=== PATIENT | male | born 1970 | race Caucasian/White ===

== ENCOUNTER 2022-10-31 17:48 | Observation (INO) ==
[2022-10-31 18:47] LABS: Basophils # (auto) 0.05 K/uL (0-0.2); Basophils % (auto) 0.9 %; Eosinophils # (auto) 0.17 K/uL (0-0.50); Eosinophils % (auto) 2.9 %; Hematocrit (blood only) 43.3 % (42.0-52.0); Immature Granulocytes # (auto) 0.01 K/uL (0.01-0.20); Immature Granulocytes % (auto) 0.2 %; Lymphocytes # (auto) 2.08 K/uL (1.2-3.4); Lymphocytes % (auto) 35.8 %; Mean Corpuscular Hemoglobin 31.6 pg (25.0-34.0); Mean Corpuscular Hgb Conc 34.6 g/dL (32.0-36.0); Mean Corpuscular Volume 91.2 fL (80.0-100.0); Mean Platelet Volume 9.8 fL (9.4-12.4); Monocytes # (auto) 0.47 K/uL (0.11-0.59); Monocytes % (auto) 8.1 %; Neutrophils # (auto) 3.03 K/uL (1.40-6.50); Neutrophils % (auto) 52.1 %; Platelet Count 176 K/uL (130-400); RDW Coefficient of Variation 12.6 % (11.5-14.5); Red Blood Count 4.75 M/uL (4.70-6.10); White Blood Count 5.81 K/ul (4.8-10.8)
[2022-10-31 19:03] LABS: Alanine Aminotransferase 43 U/L (7-52); Albumin Globulin Ratio 1.3 (0.9-2); Albumin Level 4.5 gm/dl (3.4-5.0); Alkaline Phosphatase 55 U/L (34-104); Anion Gap 7 (3-11); Aspartate Aminotransferase 38 U/L (13-39); BUN Creatinine Ratio 18.2 (10-20); Bilirubin,Total 0.8 mg/dl (0.2-1.0); Blood Urea Nitrogen 18 mg/dl (6-23); Calcium 9.8 mg/dl (8.6-10.3); Carbon Dioxide 27 mmol/L (21-32); Chloride 105 mmol/L (98-107); Est GFR (African American) 99.7 ml/min; Globulin 3.4 gm/dl (2.5-4.0); Glucose 103 mg/dl (70-99(Fasting)); Potassium 3.7 mmol/L (3.5-5.1); Sodium 139 mmol/L (136-145); Total Protein 7.9 gm/dl (6.0-8.3)
--- NOTE | 2022-10-31 20:19 | Emergency Department Note ---
Impression & Plan Vertigo, Elevated CPK, Dehydration, Borderline Lyme serology ED Provider Note NAME: SHREYA ANTHONY AGE: 52 SEX: M ARRIVES VIA: Ambulance INFORMANT: Patient ED PROVIDER(S): Fili Noguera MD CHIEF COMPLAINT: Vertigo PLAN: Disposition: Admit MEDICAL DECISION MAKING: The patient is a pleasant 52-year-old gentleman with a past medical history of hyperlipidemia who presents to the emergency department via EMS and eventually accompanied by his , a physical therapist, for evaluation of return of vertigo with associated nausea and room spinning possible component of persistent lightheadedness after being seen by department yesterday for similar symptoms where he had a CT of the head and CTA of the head and neck that were unremarkable. The patient reports he did feel improvement after meclizine yesterday and did feel better this morning but then his symptoms returned. The patient's describes that he does have a history of anxiety and panic att ack-like episodes which are provoked when he is feeling unwell and so feels there may have been a component of this prior to being transported by EMS. She reports she was not at home to help him through the symptoms. The patient also has been having complaints of headache and generalized body aches over the past several days. They do not have any known tick bites or rashes but do not she is outdoors frequently doing yard work and so tick exposure is possible. The patient feels he does attempt to hydrate when he is outside which is frequent. They deny any fevers, cough, congestion, diarrhea or urinary symptoms. Of note, the patient did arrive to emergency department during time of high volume, acuity and prolonged emergency department waiting times. Critical pathways initiated from triage. On my evaluation the patient is uncomfortable but no acute distress, afebrile with blood pressure 140s/90s and vital signs otherwise stable. He appears clinically dry. He does have notable bilateral horizontal nystagmus to the left that persists. He has no overt focal neurologic deficits otherwise with intact finger-nose, alternating palms and [id number]. EKG without overt acute ischemia. WBC, H/H and platelets within normal limits. Chemistry without metabolic acidosis. Electrolytes LFTs without significant abnormality. CPK mildly elevated at 440, nonspecific. TSH wnl. Patient was treated with IV fluid hydration, Ativan, dexamethasone for possible component of labyrinthitis/vestibular neuritis but symptoms did persist. He was additionally hydrated and treated with diphenhydramine and Reglan but continued to be symptomatic with persistence of nystagmus. Thus, given the patient's refractory symptoms the patient is did agree with plan for admission for further management and MRI. MRI with and without contrast was ordered and was pending. Of note, tickborne illness testing performed and Lyme screen was equivocal for IgM antibody. Thus, empiric treatment initiated with IV ceftriaxone and oral doxycycline for possible coinfection. Case was discussed with admitting resident, Dr. Sow and Dr. Flaherty, [facility] hospitalist, who will evaluate the patient for admission. MRI of the brain subsequently negative for acute abnormalities. Further management per admitting team. Triage Nursing notes reviewed and agree them. Prior/outside medical records reviewed Vital Signs: reviewed Differential diagnosis: Benign positional vertigo, dehydration, hypovolemia, anemia, tumor, infection, hypoglycemia, electrolyte abnormalities, cardiac sources, intracerebral event, toxicologic, neurologic, as well as other pathologies. ER treatment provided: See below. Diagnostics interpreted by me: ECG: NSR, 68 bpm, no ectopy, no overt ST elevation or depression. Cardiac Monitoring: An order for continuous cardiac monitoring was placed and demonstrated NSR, 68 bpm, no ectopy. Laboratory studies: See below Imaging studies: See below Consultation(s): Dr. Sow, admitting resident and Dr. Flaherty [facility] hospitalist HPI: The patient is a pleasant 52-year-old gentleman with a past medical history of hyperlipidemia who presents to the emergency department via EMS and eventuall y accompanied by his , a physical therapist, for evaluation of return of vertigo with associated nausea and room spinning possible component of persistent lightheadedness after being seen by department yesterday for similar symptoms where he had a CT of the head and CTA of the head and neck that were unremarkable. The patient reports he did feel improvement after meclizine yesterday and did feel better this morning but then his symptoms returned. The patient's describes that he does have a history of anxiety and panic attack-like episodes which are provoked when he is feeling unwell and so feels there may have been a component of this prior to being transported by EMS. She reports she was not at home to help him through the symptoms. The patient also has been having complaints of headache and generalized body aches over the past several days. They do not have any known tick bites or rashes but do not she is outdoors frequently doing yard work and so tick exposure is possible. The patient feels he does attempt to hydrate when he is outside which is frequent. They deny any fevers, cough, congestion, diarrhea or urinary symptoms. ROS: See above HPI for pertinent positives & negatives. A total of 10 systems reviewed and were otherwise negative. VITALS:See Below PHYSICAL EXAMINATION: GENERAL: Awake, alert, uncomfortable-appearing, in no distress HENT: Normocephalic, atraumatic. Oropharynx with dry mucous membranes and otherwise unremarkable. EYES: Normal conjunctiva. Sclera non-icteric. Bilateral horizontal nystagmus to the left. NECK: Supple. No nuchal rigidity. FROM. No JVD. RESPIRATORY: Clear to auscultation. CARDIAC: Regular rate, normal rhythm. Extremities warm and well perfused. Pulses equal. ABDOMEN: Soft, non-distended. No tenderness to palpation. No rebound or guarding. No masses. RECTAL: Deferred. MUSCULOSKELETAL: Chest examination reveals no tenderness. The back is symmetrical on inspection without obvious abnormality. There is no CVA tenderness to palpation. No joint edema. LOWER EXTREMITIES: Calves are equal size bilaterally and non-tender. No edema. No discoloration. NEURO: Normal sensorium. No sensory or motor deficits noted. 5/5 strength and SILT x 4 extremities. Cerebellar function intact including [id number], alternating palms, [id number]-[id number]. SKIN: No rash or jaundice noted. Fili Noguera MD Past Med/Surg History Medical History Hyperlipidemia Surgical History No history of previous surgery Family History Grandfather (Paternal) Myocardial infarction Prostate cancer Grandfather (Maternal) Myocardial infarction Father Prostate cancer Sister Diabetes Denies family history of Ovarian cancer Breast cancer Colorectal cancer Stroke Social History Smoking Status: Never smoker Second Hand Exposure: No; Do You Dip or Chew Tobacco: No; Hx Alcohol Use: No Hx Substance Use: No Preferred Language: Djiboutian Communication Ability: Effective Visual Impairment: Limited Hearing Ability: Normal Dye House Helper Required: No marital status: Current Living Situation: Spouse current occupational status: employed current occupation: [employer] How many Children do You have: 2 Feels Safe at Home: Yes Childhood Exposure to Second-Hand Smoke: No caffeine: Yes Dental Care, Regularly: Yes Physical Activity Frequency: 1-2 Times per Week Seatbelt Use: always Sunscreen Use: No Allergies Allergies Allergy/AdvReac Type Severity Reaction Status Date / Time aspirin Allergy Intermediate "STORAGE Unverified 10/31/22 20:10 POOL SYNDROME" Home Meds Home Medications Medication Instructions Recorded Confirmed cetirizine 10 mg tablet (Zyrtec) 10 mg PO DAILY 10/30/22 10/31/22 diphenhydramine HCl 25 mg capsule 25 mg PO TID PRN Allergy Symptoms 10/30/22 10/31/22 (Benadryl) multivitamin 1 tab PO QAM 10/30/22 10/31/22 Previous Rx's Medication Instructions Recorded meclizine 25 mg tablet 25 mg PO TID PRN dizziness #30 tabs 10/30/22 Results & Data (ED) Vital Signs Vital Signs - 24 hr 10/31/22 17:35 10/31/22 19:47 10/31/22 21:38 Temperature 37 C Temperature Source Temporal Artery Scan Pulse Rate 64 74 Pulse Rate [Bilateral] 64 Respiratory Rate 20 18 Respiratory Effort / Characteristics Non-Labored Spontaneous Respiratory Depth Normal Blood Pressure 149/94 H Blood Pressure [Right Arm] 151/64 H Blood Pressure Mean 112 Blood Pressure Mean [Right Arm] 93 Blood Pressure Position [Right Arm] Pulse Oximetry 97 93 Oxygen Delivery Method Room Air Room Air Sepsis Recent Fever Within 48 Hours No Sepsis New/Unexplained Change in Mental Status No Sepsis Action Taken by Nursing No Action Required 10/31/22 21:39 10/31/22 23:30 11/01/22 01:42 Temperature Temperature Source Pulse Rate Pulse Rate [Bilateral] 64 60 66 Respiratory Rate 18 18 18 Respiratory Effort / Characteristics Non-Labored Spontaneous Non-Labored Spontaneous Respiratory Depth Normal Normal Blood Pressure Blood Pressure [Right Arm] 153/93 H 156/88 H Blood Pressure Mean Blood Pressure Mean [Right Arm] 113 110 Blood Pressure Position [Right Arm] Sitting Sitting Pulse Oximetry 94 95 95 Oxygen Delivery Method Room Air Room Air Room Air Sepsis Recent Fever Within 48 Hours Sepsis New/Unexplained Change in Mental Status Sepsis Action Taken by Nursing Laboratory Data Attestation: I reviewed the patient's lab results. 10/31/22 18:20 10/31/22 18:20 Lab Results 10/31/22 10/31/22 10/31/22 Range/Units 18:20 18:20 18:20 WBC 5.81 (4.8-10.8) K/ul RBC 4.75 (4.70-6.10) M/uL Hgb 15.0 (14.0-18.0) g/dl Hct 43.3 (42.0-52.0) % MCV 91.2 (80.0-100.0) fL MCH 31.6 (25.0-34.0) pg MCHC 34.6 (32.0-36.0) g/dL RDW Std Deviation 42.0 (36.4-46.3) fL RDW Coeff of Luis Enrique 12.6 (11.5-14.5) % Plt Count 176 (130-400) K/uL MPV 9.8 (9.4-12.4) fL Immature Gran % (Auto) 0.2 % Neut % (Auto) 52.1 % Lymph % (Auto) 35.8 % [place] % (Auto) 8.1 % Eos % (Auto) 2.9 % Baso % (Auto) 0.9 % Neut # (Auto) 3.03 (1.40-6.50) K/uL Lymph # (Auto) 2.08 (1.2-3.4) K/uL [place] # (Auto) 0.47 (0.11-0.59) K/uL Eos # (Auto) 0.17 (0-0.50) K/uL Baso # (Auto) 0.05 (0-0.2) K/uL Immature Gran # (Auto) 0.01 (0.01-0.20) K/uL Sodium 139 (136-145) mmol/L Potassium 3.7 (3.5-5.1) mmol/L Chloride 105 (98-107) mmol/L Carbon Dioxide 27 (21-32) mmol/L Anion Gap 7 (3-11) BUN 18 (6-23) mg/dl Creatinine 0.99 (0.6-1.4) mg/dl Est Cr Clr Drug Dosing Not Reportable Est GFR ( Amer) 99.7 ml/min Est GFR (Non-Af Amer) 86.0 ml/min BUN/Creatinine Ratio 18.2 (10-20) Glucose 103 H (70-99(Fasting)) mg/dl Calcium 9.8 (8.6-10.3) mg/dl Phosphorus 2.8 (2.5-4.9) mg/dl Magnesium 2.1 (1.7-2.4) mg/dl Total Bilirubin 0.8 (0.2-1.0) mg/dl AST 38 (13-39) U/L ALT 43 (7-52) U/L Alkaline Phosphatase 55 (34-104) U/L Total Creatine Kinase 443 H (30-223) U/L Total Protein 7.9 (6.0-8.3) gm/dl Albumin 4.5 (3.4-5.0) gm/dl Globulin 3.4 (2.5-4.0) gm/dl Albumin/Globulin Ratio 1.3 (0.9-2) TSH (0.300-4.500) uIu/ml Urine Color Urine Appearance (Clear) Urine pH (4.5-7.5) Ur Specific [place] (1.000-1.030) Urine Protein (Negative) Urine Glucose (UA) (Negative) Urine Ketones (Negative) Urine Blood (Negative) Urine Nitrite (Negative) Urine Bilirubin (Negative) Urine Urobilinogen (Negative) Ur Leukocyte Esterase (Negative) Anaplasma Smear Babesia Smear Lyme Disease IgG Ab Negative (Negative) Lyme Disease IgM Ab Equivocal A (Negative) 10/31/22 10/31/22 11/01/22 Range/Units 18:20 18:20 Unknown WBC (4.8-10.8) K/ul RBC (4.70-6.10) M/uL Hgb (14.0-18.0) g/dl Hct (42.0-52.0) % MCV (80.0-100.0) fL MCH (25.0-34.0) pg MCHC (32.0-36.0) g/dL RDW Std Deviation (36.4-46.3) fL RDW Coeff of Luis Enrique (11.5-14.5) % Plt Count (130-400) K/uL MPV (9.4-12.4) fL Immature Gran % (Auto) % Neut % (Auto) % Lymph % (Auto) % [place] % (Auto) % Eos % (Auto) % Baso % (Auto) % Neut # (Auto) (1.40-6.50) K/uL Lymph # (Auto) (1.2-3.4) K/uL [place] # (Auto) (0.11-0.59) K/uL Eos # (Auto) (0-0.50) K/uL Baso # (Auto) (0-0.2) K/uL Immature Gran # (Auto) (0.01-0.20) K/uL Sodium (136-145) mmol/L Potassium (3.5-5.1) mmol/L Chloride (98-107) mmol/L Carbon Dioxide (21-32) mmol/L Anion Gap (3-11) BUN (6-23) mg/dl Creatinine (0.6-1.4) mg/dl Est Cr Clr Drug Dosing Est GFR ( Amer) ml/min Est GFR (Non-Af Amer) ml/min BUN/Creatinine Ratio (10-20) Glucose (70-99(Fasting)) mg/dl Calcium (8.6-10.3) mg/dl Phosphorus (2.5-4.9) mg/dl Magnesium (1.7-2.4) mg/dl Total Bilirubin (0.2-1.0) mg/dl AST (13-39) U/L ALT (7-52) U/L Alkaline Phosphatase (34-104) U/L Total Creatine Kinase (30-223) U/L Total Protein (6.0-8.3) gm/dl Albumin (3.4-5.0) gm/dl Globulin (2.5-4.0) gm/dl Albumin/Globulin Ratio (0.9-2) TSH 3.518 (0.300-4.500) uIu/ml Urine Color Yellow Urine Appearance Clear (Clear) Urine pH 7.5 (4.5-7.5) Ur Specific [place] 1.007 (1.000-1.030) Urine Protein Negative (Negative) Urine Glucose (UA) Negative (Negative) Urine Ketones Negative (Negative) Urine Blood Negative (Negative) Urine Nitrite Negative (Negative) Urine Bilirubin Negative (Negative) Urine Urobilinogen Negative (Negative) Ur Leukocyte Esterase Negative (Negative) Anaplasma Smear See Comment Babesia Smear See Comment Lyme Disease IgG Ab (Negative) Lyme Disease IgM Ab (Negative) Administered Medications Discontinued Medications Dexamethasone Sodium Phosphate (DexamethasonePf 10 Mg/Ml Vial) 10 mg IV NOW ONE Stop: 10/31/22 21:00 Last Admin: 10/31/22 21:19 Dose: 10 mg Documented By: SHINE Diphenhydramine HCl (Diphenhydramine 50 Mg/Ml Vial) 25 mg IV NOW STA Stop: 10/31/22 23:08 Last Admin: 10/31/22 23:31 Dose: 25 mg Documented By: CONOR Doxycycline Hyclate (Doxycycline Hyclate 100 Mg Cap) 100 mg PO NOW STA Stop: 10/31/22 23:41 Last Admin: 11/01/22 00:16 Dose: 100 mg Documented By: CONOR Gadobutrol (Gadobutrol 65ml Vial) 10 ml IV ONCE ONE Stop: 11/01/22 01:31 Last Admin: 11/01/22 01:30 Dose: 10 ml Documented By: GISELL Sodium Chloride (Nss 1000ml) 2,000 mls @ 999 mls/hr IV .Q2H1M ONE Stop: 10/31/22 22:58 Last Infusion: 11/01/22 01:20 Dose: 0 mls/hr Documented By: Admin: 10/31/22 21:22 Dose: 999 mls/hr Documented By: SHINE Acetaminophen (Ofirmev) 1,000 mg in 100 mls @ 400 mls/hr IV NOW STA Stop: 10/31/22 21:18 Last Infusion: 10/31/22 21:39 Dose: 0 mls/hr Documented By: Admin: 10/31/22 21:18 Dose: 400 mls/hr Documented By: SHINE Ceftriaxone Sodium (Rocephin) 2,000 mg in 70 mls @ 140 mls/hr IV NOW STA Stop: 11/01/22 00:09 Last Infusion: 11/01/22 01:20 Dose: 0 mls/hr Documented By: Admin: 11/01/22 00:14 Dose: 140 mls/hr Documented By: CONOR Lorazepam (Lorazepam 1 Mg Tab) 1 mg SL NOW STA Stop: 10/31/22 20:45 Last Admin: 10/31/22 21:18 Dose: 1 mg Documented By: SHINE Lorazepam (Lorazepam 1 Mg Tab) 1 mg SL NOW STA Stop: 11/01/22 00:15 Last Admin: 11/01/22 00:18 Dose: 1 mg Documented By: CONOR Meclizine HCl (Meclizine Hcl 25 Mg Tab) 25 mg PO NOW STA Stop: 10/31/22 23:54 Last Admin: 11/01/22 00:15 Dose: 25 mg Documented By: CONOR Metoclopramide HCl (Metoclopramide Hcl Inj 5 Mg/Ml 2 Ml Vial) 5 mg IV ONE ONE Stop: 10/31/22 23:08 Last Admin: 10/31/22 23:34 Dose: 5 mg Documented By: CONOR Imaging Data Radiologist's Impression: Brain MRI 11/01/22 00:49 Exam(s): MRI HEAD W/WO Contrast IV Amt: 10cc gadavist EXAM: MR Head Without and With Intravenous Contrast CLINICAL HISTORY: Reason for exam: intractable vertigo. TECHNIQUE: Magnetic resonance images of the head/brain without and with intravenous contrast in multiple planes. CONTRAST: Patient received 10cc gadavist of IV contrast COMPARISON: No relevant prior studies available. FINDINGS: Brain: Unremarkable. No mass. No hemorrhage. No acute infarct. Ventricles: Unremarkable. No ventriculomegaly. Bones/joints: Unremarkable. Sinuses: Unremarkable as visualized. No acute sinusitis. Mastoid air cells: Unremarkable as visualized. No mastoid effusion. Orbits: Unremarkable as visualized. IMPRESSION: Normal head/brain MRI. Electronically signed by: Royer Nicole MD 11/01/22 01:54 AM Discharge Plan Visit Data Chief Complaint: Vertigo Stated Complaint: VERTIGO, HERE YESTERDAY FOR SAME ED Provider: Fili Noguera Discharge Problem: Vertigo, Elevated CPK, Dehydration, Borderline Lyme serology Forms Stand Alone Forms: My [facility] [place] Prescriptions Prescriptions: No Action multivitamin Tablet 1 tab PO QAM cetirizine [Zyrtec] 10 mg Tablet 10 mg PO DAILY diphenhydramine HCl [Benadryl] 25 mg Capsule 25 mg PO TID PRN (Reason: Allergy Symptoms) meclizine 25 mg tablet 25 mg PO TID PRN (Reason: dizziness) Qty: 30 0RF Referrals Referrals: Ned Carcamo, [Primary Care Provider] -
[2022-10-31] MEDS ORDERED: LORazepam 1 MG TAB SL STA (20:44)
[2022-10-31] MEDS ORDERED: SODIUM CHLORIDE 0.9% 1000ML 2,000 ML IV ONE (20:58)
[2022-10-31] MEDS ORDERED: dexAMETHasone**PF** 10 MG/ML VIAL IV ONE (20:59)
[2022-10-31] MEDS ORDERED: ACETAMINOPHEN 1,000 MG/100 ML VIAL IV STA (21:04)
[2022-10-31 21:29] LABS: Creatine Kinase 443 U/L (30-223); Magnesium 2.1 mg/dl (1.7-2.4); Phosphorus 2.8 mg/dl (2.5-4.9)
[2022-10-31 22:05] LABS: Lyme Ab IgG w/WB Rflx Negative (Negative)
[2022-10-31 22:12] LABS: Lyme Ab IgM w/WB Rflx Equivocal (Negative)
[2022-10-31] MEDS ORDERED: METOCLOPRAMIDE HCL INJ 5 MG/ML 2 ML VIAL IV ONE (23:07)
[2022-10-31] MEDS ORDERED: diphenhydrAMINE 50 MG/ML VIAL IV STA (23:07)
[2022-10-31] MEDS ORDERED: DOXYCYCLINE HYCLATE 100 MG CAP PO STA (23:40)
[2022-10-31] MEDS ORDERED: cefTRIAXone SODIUM 2,000 MG/70 ML BAG IV STA (23:40)
[2022-10-31] MEDS ORDERED: MECLIZINE HCL 25 MG TAB PO STA (23:53)
[2022-11-01] MEDS ORDERED: LORazepam 1 MG TAB SL STA (00:14)
--- NOTE | 2022-11-01 00:15 | History & Physical Report ---
Date of Service November 01, 2022 Assessment & Plan (1) Vertigo: Plan: 52 M with benign past medical history notable only for hyperlipidemia who presents with 2 days of dizziness with vertigo symptoms. Vertigo -Acute. Atraumatic. Negative brain MRI, negative CT head, CTA head and neck. -S/p IV dexamethasone 10 mg, IV metoclopramide 5 mg, IV ceftriaxone, p.o. doxycycline, SL lorazepam in the ED. -Mild nausea, presence of imbalance, no hearing loss or tinnitus. -Results of work-up suggests peripheral rather than central process. -Differential includes BPPV, infectious process like labyrinthitis or vestibular neuritis, even herpes zoster oticus (though do not really suspect this), Mnire's, otosclerosis, or vestibular migraine. -Likely BPPV, as more than 90% of cases of positional vertigo nystagmus can be associated with this process. There is also some faint association of creatine kinase and BPPV (though in childhood). * Continue meclizine 25 mg 3 times daily as needed * As needed Ativan 0.5 mg every hour for anxiety * Continue home cetirizine Elevated CPK -443 on admission. Unclear etiology. Likely acute. Patient denies prolonged or protracted periods of falls or unconsciousness. -Status post IVF rehydration: NS bolus x2 L. -There may be association with BPPV, though its evidence is a marker and has not been conclusively proven. * IV hydration as above. * May need to recheck creatinine kinase levelsthough if patient otherwise asymptomatic, this may be rechecked on an outpatient basis. Code: Full code Dispo: Med-Surg FEN/GI: Regular DVT Prophylaxis: PT/OT: Yes Consults: None Case Management: No (2) Elevated CPK: History of Present Illness Primary Care Provider: Ned Carcamo DO Rashad is a 52-year-old man with past medical history of hyperlipidemia, who presented to the emergency department via ambulance for evaluation of vertigo and nausea x2 days. He was evaluated in the ER on 10/30/2022 for the same symptomshowever, head CT, CTA head/neck were unremarkable. Patient was discharged home initially on meclizine, and saw improvement in his symptoms initially. However, his symptoms returned the next morning. Patient felt compelled to return due to an anxiety attack episode, which he reports occurs infrequently in association with periods of illness such as this. Patient reports he had been feeling unwell in the days prior to the onset of his vertigo, particularly headache and generalized myalgia. He admits to spending a good amount of time outdoors hunting and hiking but does not recall finding any ticks. In the ED, vitals were mostly stable/wnl. Labs were also mostly normal, though creatine kinase was elevated at 443. A tickborne panel was also ordered but was pending at the time of this note. Brain MRI was negative for any abnormalities or acute process. He received a 2 L bolus of IV normal saline, meclizine, and IV ceftriaxone and doxycycline. Hospitalist service was then consulted for admission. Allergies Allergy/AdvReac Type Severity Reaction Status Date / Time aspirin Allergy Intermediate "STORAGE Unverified 10/31/22 20:10 POOL SYNDROME" Home Medications Medication Instructions Recorded Confirmed Type cetirizine 10 mg tablet (Zyrtec) 10 mg PO DAILY 10/30/22 10/31/22 History diphenhydramine HCl 25 mg capsule 25 mg PO TID PRN Allergy Symptoms 10/30/22 10/31/22 History (Benadryl) meclizine 25 mg tablet 25 mg PO TID PRN dizziness #30 tabs 10/30/22 10/31/22 Rx multivitamin 1 tab PO QAM 10/30/22 10/31/22 History hydroxyzine HCl 25 mg tablet 25 mg PO Q6H PRN vertigo 1 week 11/01/22 Rx #30 tabs Past Med/Surg History Medical History Hyperlipidemia Surgical History No history of previous surgery Family History Grandfather (Paternal) Myocardial infarction Prostate cancer Grandfather (Maternal) Myocardial infarction Father Prostate cancer Sister Diabetes Denies family history of Ovarian cancer Breast cancer Colorectal cancer Stroke Social History Smoking Status: Never smoker Second Hand Exposure: No; Do You Dip or Chew Tobacco: No; Hx Alcohol Use: No Hx Substance Use: No Preferred Language: [place] Communication Ability: Effective Visual Impairment: Limited Hearing Ability: Normal International Guest Coordinator Required: No Beliefs That Will Affect Care: None marital status: Current Living Situation: Spouse current occupational status: employed current occupation: [employer] How many Children do You have: 2 Feels Safe at Home: Yes Childhood Exposure to Second-Hand Smoke: No caffeine: Yes Dental Care, Regularly: Yes Physical Activity Frequency: 1-2 Times per Week Seatbelt Use: always Sunscreen Use: No Review of Systems Review of Systems: All systems reviewed & are unremarkable except as noted in HPI & below Physical Exam Physical Exam: General: No acute distress HEENT: PERRLA. Normal conjunctiva, anicteric sclera. Oropharynx normal. Respiratory: Normal respiratory effort, CTABL. Cardiovascular: RRR without murmurs, gallops, or rubs. No pedal edema. GI: Soft abdomen with normal bowel sounds heard on auscultation. Nontender x4 quadrants Neuro: Cranial nerves II through XII intact. Horizontal (right-gazing) nystagmus noted on ocular exam. No focal sensory deficits. Equal strength at wrist, fingers, elbows, knees, and ankles. Alert and oriented x3. Results & Data Results & Data Vital Signs (Past 12 Hours) Vital Signs Temp Pulse Pulse Resp BP BP Pulse Ox 10/31/22 23:30 60 18 153/93 H 95 10/31/22 21:39 64 18 94 10/31/22 21:38 64 18 151/64 H 93 10/31/22 19:47 74 10/31/22 17:35 37 C 64 20 149/94 H 97 O2 Del Method 10/31/22 23:30 Room Air 10/31/22 21:39 Room Air 10/31/22 21:38 Room Air 10/31/22 19:47 10/31/22 17:35 Room Air Supervising Physician Co-Signing Physician Notes Attending addendum: I have physically seen this patient, have supervised the medical residents activities, and agree with the H&P unless as otherwise noted. Assessment and Plan: Intractable vertigo/equivocal IgM Lyme and negative IgG Received dexamethasone 10 mg IV, metoclopramide 5 mg IV, ceftriaxone 2 g IV, doxycycline 100 mg p.o. and lorazepam 1 mg sublingually from the ED Continue empiric treatment with doxycycline for Lyme now Symptomatic treatment with meclizine Continue cetirizine 10 mg daily Question mild rhabdomyolysis- [id number] on admission Follow with serial laboratories Remaining orders and notations as noted Resident Activity Tracking Resident Involvement: Resident Care Provided Care Provided: Adult Hospital Medicine
[2022-11-01] MEDS ORDERED: GADOBUTROL 65ML VIAL IV ONE (01:30)
[2022-11-01 01:32] LABS: Appearance Urine Clear (Clear); Bilirubin Urine Negative (Negative); Blood Urine Negative (Negative); Color Urine Yellow; Glucose Urine UA Negative (Negative); Ketones Urine Negative (Negative); Leukocyte Esterase Urine Negative (Negative); Nitrite Urine Negative (Negative); Protein Urine Negative (Negative); Specific Gravity Urine 1.007 (1.000-1.030); Urobilinogen Urine Negative (Negative); pH Urine 7.5 (4.5-7.5)
--- NOTE | 2022-11-01 01:55 | Magnetic Resonance Report ---
Exam(s): MRI HEAD W/WO Contrast IV Amt: 10cc gadavist EXAM: MR Head Without and With Intravenous Contrast CLINICAL HISTORY: Reason for exam: intractable vertigo. TECHNIQUE: Magnetic resonance images of the head/brain without and with intravenous contrast in multiple planes. CONTRAST: Patient received 10cc gadavist of IV contrast COMPARISON: No relevant prior studies available. FINDINGS: Brain: Unremarkable. No mass. No hemorrhage. No acute infarct. Ventricles: Unremarkable. No ventriculomegaly. Bones/joints: Unremarkable. Sinuses: Unremarkable as visualized. No acute sinusitis. Mastoid air cells: Unremarkable as visualized. No mastoid effusion. Orbits: Unremarkable as visualized. IMPRESSION: Normal head/brain MRI. Electronically signed by: Royer Nicole MD 11/01/22 01:54 AM
[2022-11-01] MEDS ORDERED: MELATONIN 3 MG TAB PO PRN (02:57)
[2022-11-01] MEDS ORDERED: LORazepam 0.5 MG TAB PO PRN (02:57)
[2022-11-01] MEDS ORDERED: MECLIZINE HCL 25 MG TAB PO PRN (02:57)
--- NOTE | 2022-11-01 07:18 | Hospitalist Progress Note ---
Date of Service November 01, 2022 Assessment & Plan (1) Vertigo: Plan: Pt is a 52 yo male with benign past medical history notable only for hyperlipidemia who presents with 2 days of dizziness with vertigo symptoms. #Vertigo -Acute. Atraumatic. Negative brain MRI, negative CT head, CTA head and neck. -Mild nausea, presence of imbalance, no hearing loss or tinnitus, no recent illness -Results of work-up suggests peripheral rather than central process. - CPK elevated 443, - lyme IgM was equivocal, western blot pending - per PT: [place]-hallpike negative for exacerbation of symptoms/nystagmus, recommending neuro consult and outpatient ENT follow-up - continue meclizine -Differential includes BPPV, infectious process like labyrinthitis or vestibular neuritis, even herpes zoster oticus (though do not really suspect this), Mnire's, otosclerosis, or vestibular migraine. - (2) Elevated CPK: Admission and Anticipated Discharge Date Admission Date: November 01, 2022 Subjective Pt is a 52 yo male with benign past medical history notable only for hyperlipidemia who presents with 2 days of dizziness with vertigo symptoms. Pt seen with his present. He states that he first felt symptoms on Monday after jainism with feeling like the room is spinning associated with nausea. He states that he had several more episodes that prompted him to go to the ER. He was discharged from the ER with meclizine, and then his symptoms seemed to worsen and he states he got more episodes of vertigo along with feeling sick, so he returned to the hospital. He states that right now he feels okay, but that even with his eyes closed there is a baseline "spinning" that he feels. He states it gets much worse when he moves his head around and that looking to the far right makes it better. Denies recent illnesses. He does note a similar episode many years ago where he was diagnosed with viral labyrinthitis, but had no issues since that episode until Monday. Review of Systems Review of Systems: Constitutional: denies fever, chills, HEENT: denies congestion, sore throat Cardio: denies chest pain, palpitations Resp: denies shortness of breath, cough GI: denies abdominal pain, nausea, vomiting, constipation, diarrhea Neuro: denies new numbness, tingling, weakness Physical Exam Physical Exam: General:Alert and oriented, no acute distress, HEENT: Normocephalic, moist oral mucosa, Cardio: Regular rate and rhythm, no murmur, Resp:Lungs clear to auscultation b/l, no wheezes or rhonchi, GI: Soft and nontender, nondistended, bowel sounds active Skin: Warm, pink, dry, Psych: Mood-affect congruence. Results & Data Results & Data Vital Signs (Past 12 Hours) Vital Signs Temp Pulse Pulse Resp BP BP Pulse Ox 11/01/22 03:00 11/01/22 03:00 36.4 C L 66 16 148/86 H 94 11/01/22 02:34 67 18 156/82 H 96 11/01/22 01:42 66 18 156/88 H 95 10/31/22 23:30 60 18 153/93 H 95 10/31/22 21:39 64 18 94 10/31/22 21:38 64 18 151/64 H 93 10/31/22 19:47 74 O2 Del Method 11/01/22 03:00 Room Air 11/01/22 03:00 Room Air 11/01/22 02:34 Room Air 11/01/22 01:42 Room Air 10/31/22 23:30 Room Air 10/31/22 21:39 Room Air 10/31/22 21:38 Room Air 10/31/22 19:47
[2022-11-01 07:29] LABS: BUN Creatinine Ratio 15.3 (10-20); Calcium 9.4 mg/dl (8.6-10.3); Creatinine Clr Calc Pharmacy 111.6 ml/min; Est GFR (African American) 114.5 ml/min; Est GFR (Non-African American) 98.8 ml/min; Potassium 4.3 mmol/L (3.5-5.1)
[2022-11-01] MEDS ORDERED: CETIRIZINE HCL 10 MG TABLET PO SCH (09:00)
[2022-11-01] MEDS ORDERED: ACETAMINOPHEN 500 MG TAB PO PRN (13:34)
--- NOTE | 2022-11-01 15:58 | Electrocardiogram Report ---
Test Reason : Blood Pressure : / mmHG Vent. Rate : 066 BPM Atrial Rate : 066 BPM P-R Int : 164 ms QRS Dur : 098 ms QT Int : 398 ms P-R-T Axes : 033 051 010 degrees QTc Int : 417 ms Normal sinus rhythm Normal ECG When compared with ECG of 30-OCT-2022 11:09, No significant change was found Confirmed by Silverio Chirinos ([id number]) on 11/01/2022 3:57:50 PM Referred By: REFERRED SELF Confirmed By:Silverio Chirinos
--- NOTE | 2022-11-01 16:01 | Electrocardiogram Report ---
Test Reason : Blood Pressure : / mmHG Vent. Rate : 068 BPM Atrial Rate : 068 BPM P-R Int : 154 ms QRS Dur : 100 ms QT Int : 400 ms P-R-T Axes : 049 059 014 degrees QTc Int : 425 ms Normal sinus rhythm Normal ECG When compared with ECG of 31-OCT-2022 18:23, (unconfirmed) No significant change was found Confirmed by Silverio Chirinos ([id number]) on 11/01/2022 4:00:31 PM Referred By: REFERRED SELF Confirmed By:Silverio Chirinos
--- NOTE | 2022-11-01 17:00 | Discharge Summary ---
Date of Service November 01, 2022 Admission HPI Per Admitting Provider Rashad is a 52-year-old man with past medical history of hyperlipidemia, who presented to the emergency department via ambulance for evaluation of vertigo and nausea x2 days. He was evaluated in the ER on 10/30/2022 for the same symptomshowever, head CT, CTA head/neck were unremarkable. Patient was discharged home initially on meclizine, and saw improvement in his symptoms initially. However, his symptoms returned the next morning. Patient felt compelled to return due to an anxiety attack episode, which he reports occurs infrequently in association with periods of illness such as this. Patient reports he had been feeling unwell in the days prior to the onset of his vertigo, particularly headache and generalized myalgia. He admits to spending a good amount of time outdoors hunting and hiking but does not recall finding any ticks. In the ED, vitals were mostly stable/wnl. Labs were also mostly normal, though creatine kinase was elevated at 443. A tickborne panel was also ordered but was pending at the time of this note. Brain MRI was negative for any abnormalities or acute process. He received a 2 L bolus of IV normal saline, meclizine, and IV ceftriaxone and doxycycline. Hospitalist service was then consulted for admission. Admission Exam Per Admitting Provider General: No acute distress HEENT: PERRLA. Normal conjunctiva, anicteric sclera. Oropharynx normal. Respiratory: Normal respiratory effort, CTABL. Cardiovascular: RRR without murmurs, gallops, or rubs. No pedal edema. GI: Soft abdomen with normal bowel sounds heard on auscultation. Nontender x4 quadrants Neuro: Cranial nerves II through XII intact. Horizontal (right-gazing) nystagmus noted on ocular exam. No focal sensory deficits. Equal strength at wrist, fingers, elbows, knees, and ankles. Alert and oriented x3. Principal Diagnosis Vestibular neuritis Discharge Exam General:Alert and oriented, no acute distress, HEENT: Normocephalic, moist oral mucosa, Cardio: Regular rate and rhythm, no murmur, Resp:Lungs clear to auscultation b/l, no wheezes or rhonchi, GI: Soft and nontender, nondistended, bowel sounds active Skin: Warm, pink, dry, Psych: Mood-affect congruence. Discharge Data Allergies Allergy/AdvReac Type Severity Reaction Status Date / Time aspirin Allergy Intermediate "STORAGE Unverified 10/31/22 20:10 POOL SYNDROME" Consultations 10/31/22 23:53 ED Decision to Admit Stat Ordered Studies 11/01/22 00:49 MR brain wo/w con Stat Hospital Course (1) Vertigo: Pt is a 52 yo male with benign past medical history notable only for hyperlipidemia who presents with 2 days of dizziness with vertigo symptoms. Pt continuing to improve and desires to go home. Will send home with rx for hydroxyzine for vertigo and anxiety. Pt to follow-up with PCP once discharged from the hospital. #Vertigo -Acute. Atraumatic. Negative brain MRI, negative CT head, CTA head and neck. -Mild nausea, presence of imbalance, no hearing loss or tinnitus, no recent illness -Results of work-up suggests peripheral rather than central process. - CPK elevated 443, - lyme IgM was equivocal, western blot pending - per PT: [place]-hallpike negative for exacerbation of symptoms/nystagmus, - will give pt hydroxyzine here and discharge with some for both the vertigo and anxiety symptoms (2) Elevated CPK: Total Time Total Time Spent Total Time Spent (In Minutes): <30 Discharge Plan Discharge Items Patient Disposition: Home - Self-Care Reason For Visit: VERTIGO Discharge Diagnosis: Vestibular neuritis Activity: Resume your previous activity Non-emergency contact: Primary Care Provider Call non-emergency contact if: you have any medication questions, your pain is not controlled and your temperature is above 101.5 Follow-up/Referrals: Ned Carcamo DO [Primary Care Provider] - 11/08/22 11:30 am Diet: Regular Addtl Attending Provider Instructions: You were admitted for vertigo secondary to vestibular neuritis. You were treated with anti-histamines. Your symptoms have improved, and we feel it is safe for you to return home. Medications: Your medication list has been reviewed and reconciled upon discharge to ensure accuracy and continuity of care. An updated list of all your medications is included with your hospital discharge paperwork. Please review this list closely, and make note of any changes. We sent a new medication called hydroxyzine to your pharmacy. Take hydroxyzine 25 mg every 6 hours as needed for symptoms of vertigo and/or anxiety. Take your medications as instructed; do not skip a dose of your medicines. Make sure all of your doctors know every medicine you are taking (including hgzs-nkr-gyeokev medicines, vitamins, and supplements). Call your primary care provider before taking any new medicines (including over- the-counter medicines, vitamins, and supplements), because some of these may interact with your current medications, or may make your symptoms worse. Tell your primary care provider if you cannot afford your medications. Follow-up appointments: Make an appointment with your primary care physician within one week of discharge. A copy of this summary will be sent to them. Every time you see your primary care physician, or any other doctor, bring your medication list, a list of questions, and your recent weights. CONTACT YOUR PRIMARY CARE PROVIDER if you experience any of the following: Shortness of breath or difficulty breathing Swelling of your feet, ankles, hands or abdomen Feeling tired with normal activity or experiencing dizziness or fainting Difficulty following your treatment plan, or difficulty taking medications CALL 911 OR GO TO THE EMERGENCY DEPARTMENT if you experience any of the following: Severe abdominal pain or nausea/vomiting Severe chest pain, or chest pain that radiates (moves) to your jaw or arm Sudden, severe shortness of breath or difficulty breathing Thank you for allowing us to participate in your care. Pending Studies at Discharge: No Stand-Alone Forms: [facility], Work[facility]School Release Medications and DC Order Prescriptions: New hydroxyzine HCl 25 mg Tablet 25 mg PO Q6H PRN (Reason: vertigo) 7 Days Qty: 30 0RF Continued multivitamin Tablet 1 tab PO QAM cetirizine [Zyrtec] 10 mg Tablet 10 mg PO DAILY diphenhydramine HCl [Benadryl] 25 mg Capsule 25 mg PO TID PRN (Reason: Allergy Symptoms) meclizine 25 mg tablet 25 mg PO TID PRN (Reason: dizziness) Qty: 30 0RF Discharge Orders: Discharge Order (Routine); Ordered 11/01/22 Ordered By: Gail Palma Admission Data Admit Date/Time: 11/01/22 01:04 Attending Provider: Jarett Wood Admit Provider: Latasha Sow Primary Care Provider: Ned Carcamo Other Providers: David Flaherty Other Interventions: Discharge Summary Assessment (RN) Last Done: 11/01/22 17:59 Supervising Physician Co-Signing Physician Notes I personally examined the patient and verified all rojo points of history and exam, discussed case, and agree with decision making with Dr Palma feeling a tiny bit less dizzy. after discussions, does feel up to going home. extensive d/w pt and , answered all questions to the best of my ability vitals noted nad heent nc at mmm breathing unlabored no accessory muscles good effort no focal neuro deficits labarynthitis - prn antihistamines (changed to hydroxyzine given his anxiety), reassurance, time. posterior ischemia extremely unlikely due to low risk and normal MRI; no tinnitis/hearing loss so meniere's unlikely. asked about presumptive treatment for lyme - since only screening IgM positive and i have never seen [employer] lyme show a vertigo pattern - combined with wanting to protect him from ADRs related to doxycycline, will hold off on treatment unless IgM bands return positive - pt/ expressed understanding of this R ear symptoms c/w effusion//eustacian tube dysfunction - flonase, taught eustacian tube OMT techniques otherwise as above, safe for home Resident Activity Tracking Resident Involvement: Resident Care Provided Care Provided: Adult Hospital Medicine
[2022-11-01] MEDS ORDERED: hydrOXYzine HCl 25 MG TAB PO PRN (17:16)
--- NOTE | 2022-11-01 18:45 | Billing Data ---
Date of Service November 01, 2022 Coding Level of Care Code 94822 IN/OBS DISCH 30 MIN/LESS
--- NOTE | 2022-11-02 02:06 | Billing Data ---
Date of Service November 02, 2022 Coding Level of Care Code 66724 INT INP/OBS CARE
[2022-11-03 13:17] LABS: 18KDIGG Band NON-REACTIVE; 23KDIGG Band NON-REACTIVE; 23KDIGM Band NON-REACTIVE; 28KDIGG Band NON-REACTIVE; 30KDIGG Band NON-REACTIVE; 39KDIGG Band NON-REACTIVE; 39KDIGM Band NON-REACTIVE; 41KDIGG Band NON-REACTIVE; 41KDIGM Band NON-REACTIVE; 45KDIGG Band NON-REACTIVE; 58KDIGG Band REACTIVE; 66KDIGG Band NON-REACTIVE; 93KDIGG Band NON-REACTIVE; Lyme Antibodies, WB IgG NEGATIVE (NEGATIVE); Lyme Antibodies, WB IgM NEGATIVE (NEGATIVE)
== END 2022-11-01 18:40 | disposition home or self-care (01) ==
LOC: ED 17:48 → 3N 17:48 → SUATTDRO 11-01 01:04 → 3N 11-01 02:34

== ENCOUNTER 2024-04-25 17:01 | Inpatient (IN) ==
[2024-04-25] MEDS: ASPIRIN CHEW 324 MG PO STA (17:11)
[2024-04-25] MEDS: NITROGLYCERIN SL 0.4 MG/TAB TAB SL STA (17:11)
[2024-04-25] MEDS: HEPARIN SOD (PORCINE) 1000 UNIT/ML IV ONE (17:33)
[2024-04-25] MEDS: HEPARIN 25000 UNIT/500 ML D5W 25,000 UNITS/500 ML BAG IV SCH (17:33)
[2024-04-25 17:35] LABS: Hematocrit (blood only) 45.2 % (42.0-52.0); Hemoglobin 15.5 g/dl (14.0-18.0); Mean Corpuscular Hgb Conc 34.3 g/dL (32.0-36.0); Mean Corpuscular Volume 90.4 fL (80.0-100.0); Mean Platelet Volume 9.8 fL (9.4-12.4); Platelet Count 211 K/uL (130-400); RDW Coefficient of Variation 12.1 % (11.5-14.5); White Blood Count 9.53 K/ul (4.8-10.8)
[2024-04-25] MEDS: HEPARIN SOD (PORCINE) 1000 UNIT/ML ONE (17:42)
[2024-04-25] MEDS: Heparin IV Adult Wt-Based Low-Dose w/ INITIAL Bolus Protocol IV STA (17:42)
--- NOTE | 2024-04-25 17:46 | Emergency Department Note ---
Impression & Plan ST elevation myocardial infarction (STEMI), Unstable angina, Elevated troponin ED Provider Note NAME: SHREYA ANTHONY AGE: 53 SEX: M : 1970 ARRIVES VIA: Walk-In INFORMANT: Patient ED PROVIDER(S): Jarett Lambert DO CHIEF COMPLAINT: Chest pain HPI: Patient is a 53-year-old male who presents to the ER for exertional chest pain which has been present for the past week. He admits to shortness of breath and arm pain. No jaw pain. Denies any belly pain, nausea, vomiting, or diarrhea. No dysuria, urgency, or frequency. No other exacerbating or remitting factors. Generally the pain was going away with rest but now it is occurring at rest. ADDITIONAL HISTORY OBTAINED: Per HPI Chronic Medical/Social Conditions Affecting Care: Per HPI PAST MEDICAL HISTORY:See Below PAST SURGICAL HISTORY:See Below FAMILY HISTORY:See Below SOCIAL HISTORY:See Below HOME MEDICATIONS:See Below ALLERGIES:See Below VITALS:See Below PHYSICAL EXAMINATION: GENERAL: Sitting up in bed, alert, well appearing, well nourished, no distress, non-toxic EYE EXAM: normal conjunctiva. PERRL and EOM's grossly intact. OROPHARYNX:mucous membranes are moist NECK: supple, no nuchal rigidity, no adenopathy, non-tender LUNGS: Clear to auscultation. Normal chest wall mechanics HEART: no murmurs, S1 normal and S2 normal ABDOMEN: abdomen soft, non-tender, normo-active bowel sounds, no masses, no rebound or guarding. BACK: Back is symmetrical on inspection and there is no deformity, no midline tenderness, no CVA tenderness. SKIN: no rashes and no bruising UPPER EXTREMITIES: upper extremities are grossly normal. LOWER EXTREMITIES: No pitting edema. NEURO EXAM: Normal sensorium, cranial nerves II-XII grossly intact, normal speech, no gross weakness of arms, no gross weakness of legs. MEDICAL DECISION MAKING: Patient is a 53-year-old male who presents ER with past medical history of hyperlipidemia, prediabetes for exertional chest pain which has been present for the past week off and on. IV was established and blood work was obtained. Upon arrival patient was given aspirin and nitro. Chest pain was resolving with the nitro. It came and went on 3 separate occasions. He was placed on a heparin drip after discussion with interventional cardiology and he was given a heparin bolus. 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 Labs showed no significant leukocytosis or anemia. BMP was unremarkable. Troponin was mildly elevated at 33. Lipase was normal. With the significant ST-T wave changes which came and went with his pain patient was seen evaluated by cardiology at bedside and they recommend taking him to the [facility]. He is currently pain- free at the time. Did discuss with the hospitalist for further evaluation management treatment. Consults/Care Managements Discussions: Per [facility] Triage Nursing notes reviewed. Limited review of prior medical records performed Vital Signs: reviewed and remarkable for no significant abnormalities Differential diagnosis: Cardiac ischemia, aortic dissection, pulmonary embolism, pneumothorax, pneumonia, pericarditis, myocarditis, esophageal rupture, GERD, cholecystitis, pancreatitis, musculoskeletal, as well as other pathologies. ER treatment provided: See below Diagnostics interpreted by me include EKG and cardiac monitoring as listed below: -Cardiac Monitoring: An order was placed for continuous cardiac monitoring. The monitor shows a rate of 80 with sinus rhythm. -ECG: EKG #1 Sinus rhythm rate of 77 PVC QTc [address] wave changes in the inferior leads and lateral leads EKG #2 Sinus rhythm rate 80 ST depressions in the inferior leads as well as the lateral leads with ST segment elevation in aVR and V1 EKG #3 sinus rhythm rate [address] ST depressions in the high lateral leads as well as lateral leads with persistent elevation in V1 EKG #4 Sinus rhythm rate of 78 Normal axis Resolution of ST wave changes -Laboratory studies:Interpreted by me as stated above in MDM and shown below. Imaging studies: Xrays: As interpreted by me: Portable AP upright 1 view of the chest shows no focal infiltrate CTs show: none Procedures:none Critical Care: I have personally spent 45 minutes of critical care time in the direct management of this patient. This includes bedside care, interpretation of diagnostic studies, and testing, discussion with consultants, patient, and family members, and other required patient management activities. This 45 minutes is in excess of all separately billable procedures. Past Med/Surg History Problem List (Updated 04/25/24 @ 18:39 by Jarett Lambert DO) Elevated troponin (Acute) Unstable angina (Acute) ST elevation myocardial infarction (STEMI) (Acute) Chest pain Protrusion of cervical intervertebral disc Cervical radicular pain Fracture of phalanx, proximal, left hand Mallet finger of left hand Cervical radiculopathy Generalized anxiety disorder Vertigo (Acute) Hyperlipidemia Pre-diabetes Elevated blood pressure reading Obesity (BMI 30-39.9) Medical History Borderline Lyme serology Dehydration Elevated CPK Surgical History No history of previous surgery Family History Grandfather (Paternal) Myocardial infarction Prostate cancer Grandfather (Maternal) Myocardial infarction Father Prostate cancer Sister Diabetes Denies family history of Ovarian cancer Breast cancer Colorectal cancer Stroke Social History Smoking Status: Unknown if ever smoked Second Hand Exposure: No; Do You Dip or Chew Tobacco: No; Hx Alcohol Use: No Hx Substance Use: No Preferred Language: Tajik Communication Ability: Effective Visual Impairment: Limited Hearing Ability: Normal Leg Assembler Required: No Beliefs That Will Affect Care: None marital status: Current Living Situation: Spouse current occupational status: employed current occupation: [employer] @ [employer] How many Children do You have: 2 Feels Safe at Home: Yes Childhood Exposure to Second-Hand Smoke: No caffeine: Yes Dental Care, Regularly: Yes Physical Activity Frequency: 1-2 Times per Week Seatbelt Use: always Sunscreen Use: No Allergies Allergies Allergy/AdvReac Type Severity Reaction Status Date / Time aspirin Allergy Intermediate "STORAGE Unverified 01/05/24 07:57 POOL SYNDROME" Home Meds Home Medications Medication Instructions Recorded Confirmed cetirizine 10 mg tablet (Zyrtec) 10 mg PO DAILY 10/30/22 04/25/24 multivitamin 1 tab PO QAM 10/30/22 04/25/24 Results & Data (ED) Vital Signs Vital Signs - 24 hr 04/25/24 17:02 04/25/24 17:08 04/25/24 17:16 Temperature 36.6 C Temperature Source Temporal Artery Scan Pulse Rate 76 96 H 73 Pulse Rate from SpO2 Sensor Respiratory Rate 18 18 Blood Pressure 158/89 H Blood Pressure Mean 112 Pulse Oximetry 98 96 Oxygen Delivery Method Room Air Room Air Sepsis Recent Fever Within 48 Hours No Sepsis New/Unexplained Change in Mental Status N/A Sepsis Action Taken by Nursing No Action Required 04/25/24 17:18 04/25/24 17:21 04/25/24 17:24 Temperature Temperature Source Pulse Rate 82 84 Pulse Rate from SpO2 Sensor Respiratory Rate 13 23 Blood Pressure 143/96 H Blood Pressure Mean 104 Pulse Oximetry Oxygen Delivery Method Sepsis Recent Fever Within 48 Hours Sepsis New/Unexplained Change in Mental Status Sepsis Action Taken by Nursing 04/25/24 17:26 04/25/24 17:26 04/25/24 17:27 Temperature Temperature Source Pulse Rate 84 Pulse Rate from SpO2 Sensor 82 Respiratory Rate 19 Blood Pressure 145/89 H 145/89 H Blood Pressure Mean 111 111 Pulse Oximetry 96 Oxygen Delivery Method Sepsis Recent Fever Within 48 Hours Sepsis New/Unexplained Change in Mental Status Sepsis Action Taken by Nursing 04/25/24 17:28 04/25/24 17:28 04/25/24 17:30 Temperature Temperature Source Pulse Rate Pulse Rate from SpO2 Sensor Respiratory Rate Blood Pressure 131/92 Blood Pressure Mean 102 Pulse Oximetry 96 Oxygen Delivery Method Room Air Sepsis Recent Fever Within 48 Hours Sepsis New/Unexplained Change in Mental Status Sepsis Action Taken by Nursing 04/25/24 17:35 04/25/24 17:40 04/25/24 17:40 Temperature Temperature Source Pulse Rate Pulse Rate from SpO2 Sensor Respiratory Rate Blood Pressure 130/97 134/92 134/92 Blood Pressure Mean 103 102 102 Pulse Oximetry Oxygen Delivery Method Sepsis Recent Fever Within 48 Hours Sepsis New/Unexplained Change in Mental Status Sepsis Action Taken by Nursing 04/25/24 17:40 04/25/24 17:42 04/25/24 17:45 Temperature Temperature Source Pulse Rate 80 Pulse Rate from SpO2 Sensor 79 Respiratory Rate 21 Blood Pressure 134/92 141/82 H Blood Pressure Mean 102 94 Pulse Oximetry 97 Oxygen Delivery Method Sepsis Recent Fever Within 48 Hours Sepsis New/Unexplained Change in Mental Status Sepsis Action Taken by Nursing 04/25/24 17:45 04/25/24 17:50 04/25/24 17:50 Temperature Temperature Source Pulse Rate Pulse Rate from SpO2 Sensor Respiratory Rate Blood Pressure 141/82 H 138/85 138/85 Blood Pressure Mean 94 94 94 Pulse Oximetry Oxygen Delivery Method Sepsis Recent Fever Within 48 Hours Sepsis New/Unexplained Change in Mental Status Sepsis Action Taken by Nursing 04/25/24 17:50 04/25/24 17:50 04/25/24 17:51 Temperature Temperature Source Pulse Rate 84 Pulse Rate from SpO2 Sensor 88 Respiratory Rate 17 Blood Pressure 138/85 138/85 Blood Pressure Mean 94 94 Pulse Oximetry 97 Oxygen Delivery Method Sepsis Recent Fever Within 48 Hours Sepsis New/Unexplained Change in Mental Status Sepsis Action Taken by Nursing 04/25/24 17:55 04/25/24 17:55 04/25/24 17:57 Temperature Temperature Source Pulse Rate 85 Pulse Rate from SpO2 Sensor 86 Respiratory Rate 19 Blood Pressure 122/89 122/89 Blood Pressure Mean 99 99 Pulse Oximetry 98 Oxygen Delivery Method Sepsis Recent Fever Within 48 Hours Sepsis New/Unexplained Change in Mental Status Sepsis Action Taken by Nursing 04/25/24 18:00 04/25/24 18:10 04/25/24 18:10 Temperature Temperature Source Pulse Rate Pulse Rate from SpO2 Sensor Respiratory Rate Blood Pressure 144/82 H 137/78 137/78 Blood Pressure Mean 101 84 84 Pulse Oximetry Oxygen Delivery Method Sepsis Recent Fever Within 48 Hours Sepsis New/Unexplained Change in Mental Status Sepsis Action Taken by Nursing 04/25/24 18:12 Temperature Temperature Source Pulse Rate 87 Pulse Rate from SpO2 Sensor 86 Respiratory Rate 20 Blood Pressure Blood Pressure Mean Pulse Oximetry 97 Oxygen Delivery Method Sepsis Recent Fever Within 48 Hours Sepsis New/Unexplained Change in Mental Status Sepsis Action Taken by Nursing Laboratory Data 04/25/24 17:18 04/25/24 17:18 Lab Results 04/25/24 Range/Units 17:18 WBC 9.53 (4.8-10.8) K/ul RBC 5.00 (4.70-6.10) M/uL Hgb 15.5 (14.0-18.0) g/dl Hct 45.2 (42.0-52.0) % MCV 90.4 (80.0-100.0) fL MCH 31.0 (25.0-34.0) pg MCHC 34.3 (32.0-36.0) g/dL RDW Std Deviation 40.0 (36.4-46.3) fL RDW Coeff of Luis Enrique 12.1 (11.5-14.5) % Plt Count 211 (130-400) K/uL MPV 9.8 (9.4-12.4) fL PT Cancelled INR Cancelled APTT Cancelled PTT Ratio Cancelled Heparin Anti-Xa, Unfract Cancelled Sodium 140 (136-145) mmol/L Potassium 3.9 (3.5-5.1) mmol/L Chloride 103 (98-107) mmol/L Carbon Dioxide 29 (21-32) mmol/L Anion Gap 8 (3-11) BUN 21 (6-23) mg/dl Creatinine 1.10 (0.6-1.4) mg/dl Est Cr Clr Drug Dosing 86.9 ml/min eGFR 79.28 BUN/Creatinine Ratio 19.1 (10-20) Glucose 93 (70-99(Fasting)) mg/dl Calcium 10.3 (8.6-10.3) mg/dl Magnesium 2.2 (1.7-2.4) mg/dl Total Bilirubin 0.9 (0.2-1.0) mg/dl AST 31 (13-39) U/L ALT 30 (7-52) U/L Alkaline Phosphatase 57 (34-104) U/L Troponin I High Sens 33.6 H (0-20) pg/ml Total Protein 8.4 H (6.0-8.3) gm/dl Albumin 5.0 (3.4-5.0) gm/dl Globulin 3.4 (2.5-4.0) gm/dl Albumin/Globulin Ratio 1.5 (0.9-2) Lipase 19 (11-82) U/L Administered Medications Heparin Sodium/Dextrose (Heparin 86069 Unit/500 Ml) 25,000 units in 500 mls @ 19 mls/hr IV .Q24H [facility]; Protocol Stop: 05/25/24 17:44 Last Admin: 04/25/24 17:33 Dose: 950 units/hr, 19 mls/hr Documented By: ADAM Co-signed By: DS Discontinued Medications Aspirin (Aspirin Chew 324 Mg) 324 mg PO NOW STA Stop: 04/25/24 17:09 Last Admin: 04/25/24 17:11 Dose: 324 mg Documented By: ADAM Heparin Sodium (Porcine) (Heparin Sod (Porcine) 1000 Unit/Ml) Confirm Administered Dose 1,000 units .ROUTE .STK-MED ONE Stop: 04/25/24 17:26 Last Admin: 04/25/24 17:42 Dose: Not Given Documented By: ADAM Heparin Sodium (Porcine) (Heparin Sod (Porcine) 1000 Unit/Ml) 1 units IV NOW ONE Stop: 04/25/24 17:43 Last Admin: 04/25/24 17:33 Dose: 5,000 units Documented By: ADAM Co-signed By: KONG Heparin Sodium/Dextrose (Heparin Iv Adult Wt-Based Low-Dose W/ Initial Bolus Protocol) 1 each IV NOW STA; Protocol Stop: 04/25/24 17:27 Last Admin: 04/25/24 17:42 Dose: Not Given Documented By: ADAM Nitroglycerin (Nitroglycerin Sl 0.4 Mg/Tab Tab) 0.4 mg SL NOW STA Stop: 04/25/24 17:09 Last Admin: 04/25/24 17:11 Dose: 0.4 mg Documented By: ADAM Nitroglycerin (Nitroglycerin 2% Ointment 30gm Tube) Confirm Administered Dose 18 inch EXT .STK-MED ONE Stop: 04/25/24 17:49 Last Admin: 04/25/24 18:14 Dose: Not Given Documented By: ADAM Nitroglycerin (Nitroglycerin 2% Ointment 30gm Tube) 1 inch EXT ONE ONE Stop: 04/25/24 17:53 Last Admin: 04/25/24 18:14 Dose: 1 inch Documented By: ADAM Discharge Plan Visit Data Chief Complaint: Chest Pain Stated Complaint: CHEST PAIN, FEELS LIKE A HEART ATTACK ED Provider: Jaertt Lambert Discharge Problem: ST elevation myocardial infarction (STEMI), Unstable angina, Elevated troponin Forms Stand Alone Forms: [employer] Prescriptions Prescriptions: No Action multivitamin Tablet 1 tab PO QAM cetirizine [Zyrtec] 10 mg Tablet 10 mg PO DAILY Referrals Referrals: Ned Carcamo DO [Primary Care Provider] - Discharge Problem: ST elevation myocardial infarction (STEMI) Qualifiers: Involved coronary artery: unspecified coronary artery Qualified Code(s): I21.3 - ST elevation (STEMI) myocardial infarction of unspecified site
[2024-04-25 17:53] LABS: Albumin Globulin Ratio 1.5 (0.9-2); BUN Creatinine Ratio 19.1 (10-20); Bilirubin,Total 0.9 mg/dl (0.2-1.0); Calcium 10.3 mg/dl (8.6-10.3); Creatinine Clr Calc Pharmacy 86.9 ml/min; Globulin 3.4 gm/dl (2.5-4.0); Potassium 3.9 mmol/L (3.5-5.1); Total Protein 8.4 gm/dl (6.0-8.3)
--- NOTE | 2024-04-25 17:54 | History & Physical Report ---
Date of Service April 25, 2024 Assessment & Plan (1) Chest pain: (2) ST elevation myocardial infarction (STEMI): (3) Platelet storage pool disease: Plan Rashad is a 53-year-old male with a past medical history of anxiety and vertigo who presents to the hospital with chest pain at rest, worsening with activity. #chest pain EKG: ST elevations in V1, V2, aVR Initial troponin 33.6 Cardiology consulted - to refuse laborer Nitropaste applied in the ER Heparin drip Further orders/plan pending refuse laborer results Anxiety - not on home medications Dispo: admit to ICU post cath DVT proh: heparin drip History of Present Illness Chief Complaint: chest pain Primary Care Provider: Ned Carcamo DO Rashad is a 53-year-old male with a past medical history of anxiety and vertigo who presents to the hospital with chest pain. Reports that he was having chest pain on and off for the last week with activity, and this resolved on its own. However, chest pain today started while he was simply driving his car. When he got home he attempted to take his dogs out and the chest pain worsened he said he could not stand straight and was short of breath. He is also little bit dizzy at this time. Denies history of cardiac problems himself but extensive cardiac history in his grandparents. Upon evaluation he was chest pain-free but he just received a dose of nitroglycerin. This was not his first dose and in between his second and third dose the chest pain did return. He is not short of breath at this time. ED course: Aspirin 324 mg p.o. Nitroglycerin 0.4 mg x 3 Heparin drip with bolus Allergies Allergy/AdvReac Type Severity Reaction Status Date / Time aspirin Allergy Intermediate "STORAGE Unverified 01/05/24 07:57 POOL SYNDROME" Home Medications Medication Instructions Recorded Confirmed Type cetirizine 10 mg tablet (Zyrtec) 10 mg PO DAILY 10/30/22 04/25/24 History multivitamin 1 tab PO QAM 10/30/22 04/25/24 History Past Med/Surg History Problem List (Updated 04/26/24 @ 07:13 by Jose Manuel Harkins MD) Platelet storage pool disease CAD (coronary artery disease) Elevated troponin (Acute) Unstable angina (Acute) ST elevation myocardial infarction (STEMI) (Acute) Chest pain Protrusion of cervical intervertebral disc Cervical radicular pain Fracture of phalanx, proximal, left hand Mallet finger of left hand Cervical radiculopathy Generalized anxiety disorder Vertigo (Acute) Hyperlipidemia Pre-diabetes Elevated blood pressure reading Obesity (BMI 30-39.9) Medical History Borderline Lyme serology Dehydration Elevated CPK Surgical History No history of previous surgery Family History Grandfather (Paternal) Myocardial infarction Prostate cancer Grandfather (Maternal) Myocardial infarction Father Prostate cancer Sister Diabetes Denies family history of Ovarian cancer Breast cancer Colorectal cancer Stroke Social History Smoking Status: Never smoker Second Hand Exposure: No; Do You Dip or Chew Tobacco: No; Hx Alcohol Use: No Hx Substance Use: No Preferred Language: Hungarian Communication Ability: Effective Visual Impairment: Limited Hearing Ability: Normal Operator/Assistant Foreman Required: No Beliefs That Will Affect Care: None marital status: Current Living Situation: Spouse current occupational status: employed current occupation: [employer] @ [employer] How many Children do You have: 2 Feels Safe at Home: Yes Childhood Exposure to Second-Hand Smoke: No caffeine: Yes Dental Care, Regularly: Yes Physical Activity Frequency: 1-2 Times per Week Seatbelt Use: always Sunscreen Use: No Assistive Devices: Contacts and Glasses Review of Systems Review of Systems: All systems reviewed & are unremarkable except as noted in Subjective Physical Exam Physical Exam: General: NAD, VS as above Resp: normal respiratory effort, lungs clear to auscultation CV: RRR, no murmur, Abd: normal bowel sounds, non tender, no hepatosplenomegaly Extremities: Moves all extremities, no edema Neuro: A&O x3, Results & Data Results & Data Vital Signs (Past 12 Hours) Vital Signs Temp Pulse Resp BP Pulse Ox O2 Del Method 04/25/24 17:42 80 21 97 04/25/24 17:40 134/92 04/25/24 17:40 134/92 04/25/24 17:40 134/92 04/25/24 17:35 130/97 04/25/24 17:30 131/92 04/25/24 17:28 96 04/25/24 17:28 Room Air 04/25/24 17:27 84 19 96 04/25/24 17:26 145/89 H 04/25/24 17:26 145/89 H 04/25/24 17:24 143/96 H 04/25/24 17:21 84 23 04/25/24 17:18 82 13 04/25/24 17:16 73 04/25/24 17:08 96 H 18 96 Room Air 04/25/24 17:02 97.9 F 76 18 158/89 H 98 Room Air Laboratory Results CBC, chemistry, lipase reviewed Supervising Physician Co-Signing Physician Notes I personally saw and examined the patient. I independently reviewed the labs, EKG, imaging, problem list, medication list, past medical history and family history. I verified all rojo points and agree with Arlyn Clay PA-C with the following exceptions and/or additions: 53 year old male presents to the ER with central crushing chest pain. Dynamic ST elevations V1, V2, aVR. Chest pain improved with nitroglycerin prior to cardiac cath. Chest pain much milder following cardiac cath. 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 Monitor closely for bleeding on DAPT. PG Care Time/CCT Total # of Minutes Spent Total Time Spent with Patient: Total time spent is greater than 50% in coordination of care (as documented) at patient's floor/unit and/or counseling patient: Coding Level of Care Code 86021 INT INP/OBS CARE 3/75MIN Diagnoses Chest pain R07.9 ST elevation myocardial infarction (STEMI) I21.3 Involved coronary artery: unspecified coronary artery Platelet storage pool disease D69.1 (2) ST elevation myocardial infarction (STEMI) Involved coronary artery: unspecified coronary artery Qualified Code(s): I21.3 - ST elevation (STEMI) myocardial infarction of unspecified site
[2024-04-25 17:59] LABS: Troponin I High Sensitivity 33.6 pg/ml (0-20)
[2024-04-25] MEDS: NITROGLYCERIN 2% OINTMENT 30GM TUBE EXT ONE ×2 (18:14)
[2024-04-25 18:28] LABS: Magnesium 2.2 mg/dl (1.7-2.4)
[2024-04-25 18:46] LABS: ALC (manual) 6.48 K/uL (1.2-3.4); ANC (manual) 2.38 K/uL (1.4-6.5); Basophils % (manual) 1 %; Eosinophils % (manual) 1 %; Large Granular Lymph # (manua 1.91 K/uL; Large Granular Lymph % (manual) 20 %; Lymphocytes # (manual) 4.57 K/uL (1.2-3.4); Lymphocytes % (manual) 48 %; Monocytes # (manual) 0.48 K/uL (0.11-0.59); Monocytes % (manual) 5 %; Neutrophils # (manual) 2.38 K/uL (1.40-6.50); Neutrophils % (manual) 25 %; RBC Morphology Unremarkable
[2024-04-25] MEDS: NITROGLYCERIN/D5W 100MCG/ML 20ML SYR ONE (18:58)
[2024-04-25] MEDS: niCARdipine 2,000 MCG/20 ML SYR ONE (18:58)
[2024-04-25 19:21] LABS: Partial Thromboplastin Ratio 2.2; Partial Thromboplastin Time 60 Seconds (21-31); Prothrombin Time 10.9 Seconds (9.0-12.0)
--- NOTE | 2024-04-25 19:25 | XRay Report ---
EXAM: XR chest 1V portable CLINICAL HISTORY: Chest pain, nonspecific TECHNIQUE: An X-ray image of the chest is obtained in frontal projection. COMPARISON: No prior studies are available for comparison. FINDINGS: Bilateral increased broncho vascular markings and minnimal reticular nodular shadowing No evidence of consolidation, collapse, No evidence of pleural effusion or pleural thickening. Heart and Mediastinum: Heart size and shape are normal. No mediastinal widening or masses. No hilar or mediastinal lymphadenopathy. Bony Thorax: Bony thorax appears intact without fractures or deformities. Soft Tissues: Soft tissues overlying the chest wall are unremarkable. IMPRESSION: 1. Bilateral increased broncho vascular markings and minimal reticular nodular shadowing Could be due to mild/early congestive changes or no definite consolidation, or cavitation pleural effusion. 2. Advised clinical and lab correlation along with follow-up. Electronically signed by Glenis Rangel 04-25-2024 7:24 PM
[2024-04-25] MEDS: fentaNYL citrate PF 100 MCG/2 ML VIAL ONE (19:32)
[2024-04-25] MEDS: HEPARIN (PORCINE) 1000 UNIT/ML 10 ML (CATH LAB USE ONLY) ONE (19:33)
[2024-04-25] MEDS: MIDAZOLAM HCL 1 MG/ML 2ML VIAL ONE (19:33)
[2024-04-25] MEDS: OPTIRAY 350 ONE (19:34)
[2024-04-25] MEDS: TICAGRELOR 90 MG TAB ONE (19:35)
[2024-04-25 19:41] LABS: ANTI-Xa, UFH(UnfractionatedHep 0.96 IU/ml (0.3-0.7)
--- NOTE | 2024-04-25 19:54 | Pre Anesthesia Assessment ---
Date of Service April 25, 2024 Pre Sedation Assessment Vital Signs Temp Pulse Resp BP Pulse Ox O2 Del Method 04/25/24 18:12 87 20 97 04/25/24 18:10 137/78 04/25/24 18:10 137/78 04/25/24 18:00 144/82 H 04/25/24 17:57 85 19 98 04/25/24 17:55 122/89 04/25/24 17:55 122/89 04/25/24 17:51 84 17 97 04/25/24 17:50 138/85 04/25/24 17:50 138/85 04/25/24 17:50 138/85 04/25/24 17:50 138/85 04/25/24 17:45 141/82 H 04/25/24 17:45 141/82 H 04/25/24 17:42 80 21 97 04/25/24 17:40 134/92 04/25/24 17:40 134/92 04/25/24 17:40 134/92 04/25/24 17:35 130/97 04/25/24 17:30 131/92 04/25/24 17:28 96 04/25/24 17:28 Room Air 04/25/24 17:27 84 19 96 04/25/24 17:26 145/89 H 04/25/24 17:26 145/89 H 04/25/24 17:24 143/96 H 04/25/24 17:21 84 23 04/25/24 17:18 82 13 04/25/24 17:16 73 04/25/24 17:08 96 H 18 96 Room Air 04/25/24 17:02 36.6 C 76 18 158/89 H 98 Room Air Cardiovascular RRR, no murmur, no edema Respiratory normal respiratory effort, lungs clear to auscultation Pre-Sedation Airway Assessment Smoking Status: Unknown if ever smoked Mallampati 2 ASA 4 Notes The planned sedation has been discussed with the patient. Informed Consent was obtained. I have identified the patient, determined the appropriateness of sedation and have assessed the patient immediately prior to the procedure. All medicine(s) and interventions are by my order.
[2024-04-25] MEDS ORDERED: ATROPINE SULFATE 0.1 MG/ML 10ML SYR IV PRN (20:00)
[2024-04-25] MEDS ORDERED: ONDANSETRON INJ 2 MG/ML 2 ML VIAL IV PRN (20:00)
--- NOTE | 2024-04-25 20:09 | Post Anesthesia Assessment ---
Date of Service April 25, 2024 Post Sedation Assessment Vital Signs Temp Pulse Resp BP Pulse Ox O2 Del Method 04/25/24 18:12 87 20 97 04/25/24 18:10 137/78 04/25/24 18:10 137/78 04/25/24 18:00 144/82 H 04/25/24 17:57 85 19 98 04/25/24 17:55 122/89 04/25/24 17:55 122/89 04/25/24 17:51 84 17 97 04/25/24 17:50 138/85 04/25/24 17:50 138/85 04/25/24 17:50 138/85 04/25/24 17:50 138/85 04/25/24 17:45 141/82 H 04/25/24 17:45 141/82 H 04/25/24 17:42 80 21 97 04/25/24 17:40 134/92 04/25/24 17:40 134/92 04/25/24 17:40 134/92 04/25/24 17:35 130/97 04/25/24 17:30 131/92 04/25/24 17:28 96 04/25/24 17:28 Room Air 04/25/24 17:27 84 19 96 04/25/24 17:26 145/89 H 04/25/24 17:26 145/89 H 04/25/24 17:24 143/96 H 04/25/24 17:21 84 23 04/25/24 17:18 82 13 04/25/24 17:16 73 04/25/24 17:08 96 H 18 96 Room Air 04/25/24 17:02 36.6 C 76 18 158/89 H 98 Room Air Recovery Score Activity: Moves 4 extremities Respiration: Deep Breath/Cough Circulation: +/-20% PreAnes Value Consciousness: Fully Awake Oxygen Saturation: > 92% On Room Air Discharge Sedation Level of Care: Fast Track Phase II Post Sedation Plan On clinical assessment, the patient appears to have tolerated the sedation without complications. Patient is recovering as anticipated. Patient will continue to be monitored by nursing and may be discharged when sedation discharge criteria are met per below protocol. Upon Completions of procedure up to 15 minutes continue every 5 minute vital signs and the P.A.R. score; then discharge to a Phase I or Fast Track to Phase II per the following guidelines: * Discharge Patient to appropriate Phase II area if PAR is 8 or greater or return to pre- procedure baseline. The post - procedure orders will be as directed. * If PAR score is less than 8 or not return to pre-procedure baseline then patient will follow Phase I monitoring till PAR is reached for Phase II. The Phase I may be done in procedure room or may call to secure a Phase I area. * If naloxone or flumazenil are used for reversal, hold in Phase I for continued monitoring from when last reversal dose was given for a minimum of 60 minutes or longer pending the nurse and/or physician discretion of patient condition before discharge to Phase II. Please call the Sedation Physician to re-evaluate and complete post-note for discharge to Phase II area. Do NOT discharge from procedure sedation or Phase 1 until post- sedation evaluation note is complete by procedure /sedation MD Sedation Discharge Instructions to be given to the patient at discharge to home. [facility] Procedure Codes (Charges) Indication for Procedure Indication for procedure: ACS Sedation/Anesthesia Procedure 1: Sedation/Anesthesia: 24152 Mod Sedation by the same physician;Init15 Min Child Age 5 & Up (initial 15 min, start 1846) Total Sedation Time (minutes): 40 Procedure 2: Sedation/Anesthesia: 09947 Mod Sedation by the same physician; Ea [id number] Minutes (additional 25 min, end 1926) Total Sedation Time (minutes): 40
[2024-04-25] MEDS ORDERED: DEXTROSE 50% 50 ML SYRINGE IV PRN (20:16)
[2024-04-25] MEDS ORDERED: GLUCOSE 40% GEL 15 GM TUBE PO PRN (20:16)
[2024-04-25] MEDS ORDERED: GLUCAGON FOR INJ 1 MG VIAL SQ PRN (20:16)
[2024-04-25] MEDS ORDERED: CARBOHYDRATES FOR HYPOGLYCEMIA PO PRN (20:16)
[2024-04-25] MEDS ORDERED: GLUCOSE 10 TAB/TUBE PO PRN (20:16)
--- NOTE | 2024-04-25 20:16 | Critical Care Consultation ---
Date of Consultation April 25, 2024 Assessment & Plan (1) ST elevation myocardial infarction (STEMI): (2) CAD (coronary artery disease): Plan Reason Critically Ill: STEMI s/p MADY pLAD Neuro - CAM ICU: negative RASS GOAL 0 No acute concerns Cardiac - Received 4500U heparin intraoperatively. Continuation of antiplatelet therapy +/- DAPT per Cardiology. 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, unspecified type Start statin, BB as hemodynamics allow MAP goal > 65mmHg TTE pending, lipid panel pending Post-procedure EKG WNL Respiratory - No acute concerns Encourage deep breathing, IS/Flutter SpO2 > 92% GI - Diet: Advance as tolerated SUP: N/A Bowel regimen: PRN RENAL/LYTES - Replete electrolytes as indicated No indication for chavez Maintain net even to net negative ENDO - A1c pending BG 140-180 per SCC guidelines ISS if needed while inpatient HEME - No acute concerns ID - No acute concerns LINES/TUBES/DRAINS - PIV x2 DVT PROPHYLAXIS - Start tomorrow Full code I have personally spent 30 minutes of critical care time in the direct manag ement of this patient. This is a life/limb threatening event. This includes time spent evaluating patient, direct bedside care, chart review, placing orders, interpretation of diagnostic studies, discussion with consultants, patient, and family members, as well as other required patient management activities. This time is exclusive of all separately billable procedures, and teaching time and separate from and in addition to any other critical care service time. Thank you for allowing us to participate in the care of this patient. Please refer to my attending physician's documentation for any further recommendations. History of Present Illness Reason for Consultation: STEMI Requesting Physician: Shahana Attending Physician: Jose Manuel Harkins MD History of Present Illness Mr. 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 Per report, patient was experiencing chest pain with exertion on and off for approximately 1 week. He received 3 doses of nitroglycerin in the ED with re currence of chest pain between doses. Mildly hypertensive, otherwise hemodynamically stable. 12-lead showed MAURICIO in V1, V2, aVR. He was taken to cardiac cath technician by Dr. Scott. Underwent MADY x1 to proximal LAD. Tolerated the procedure well. Is admitted to ICU post-procedure for close monitoring. EKG on arrival shows NSR without ischemic changes. He is hemodynamically stable, saturating well on room air. No current complaints. Specifically denies shortness of breath, visual changes, numbness/paresthesias, abdominal pain, nausea at this time. Endorses very mild constant chest pain which is improved from prior. Remainder of ROS negative. Allergies Allergy/AdvReac Type Severity Reaction Status Date / Time aspirin Allergy Intermediate "STORAGE Unverified 01/05/24 07:57 POOL SYNDROME" Home Medications Medication Instructions Recorded Confirmed Type cetirizine 10 mg tablet (Zyrtec) 10 mg PO DAILY 10/30/22 04/25/24 History multivitamin 1 tab PO QAM 10/30/22 04/25/24 History Patient History Medical History Borderline Lyme serology Dehydration Elevated CPK Surgical History No history of previous surgery Family History Grandfather (Paternal) Myocardial infarction Prostate cancer Grandfather (Maternal) Myocardial infarction Father Prostate cancer Sister Diabetes Denies family history of Ovarian cancer Breast cancer Colorectal cancer Stroke Social History Smoking Status: Never smoker Second Hand Exposure: No; Do You Dip or Chew Tobacco: No; Hx Alcohol Use: No Hx Substance Use: No Preferred Language: Puerto Rican Communication Ability: Effective Visual Impairment: Limited Hearing Ability: Normal Metal Reclamation Kettle Tender Required: No Beliefs That Will Affect Care: None marital status: Current Living Situation: Spouse current occupational status: employed 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 How many Children do You have: 2 Feels Safe at Home: Yes Childhood Exposure to Second-Hand Smoke: No caffeine: Yes Dental Care, Regularly: Yes Physical Activity Frequency: 1-2 Times per Week Seatbelt Use: always Sunscreen Use: No Assistive Devices: Contacts and Glasses Review of Systems Review of Systems: All systems reviewed & are unremarkable except as noted in HPI & below Physical Exam Constitutional: WD/WN, vitals as above Eyes: PERRL, conjunctivae normal, anicteric sclerae ENMT: external ear and nose normal, oropharynx normal Neck: trachea midline, no thyromegaly Respiratory: normal respiratory effort, lungs clear to auscultation Cardiovascular: RRR, no murmur, no edema R radial access site hemostatic with dressing C/D/I. Capillary refill WNL. Gastrointestinal (Abdomen): normal bowel sounds, soft, nontender, no hepatosplenomegaly Skin: no rashes, warm and dry Neurologic: PERRL, EOMI, accommodation nl, no face palsy, no dysarthria Results & Data Results & Data Vital Signs (Past 12 Hours) Vital Signs Temp Pulse Resp BP Pulse Ox O2 Del Method 04/25/24 18:12 87 20 97 04/25/24 18:10 137/78 04/25/24 18:10 137/78 04/25/24 18:00 144/82 H 04/25/24 17:57 85 19 98 04/25/24 17:55 122/89 04/25/24 17:55 122/89 04/25/24 17:51 84 17 97 04/25/24 17:50 138/85 04/25/24 17:50 138/85 04/25/24 17:50 138/85 04/25/24 17:50 138/85 04/25/24 17:45 141/82 H 04/25/24 17:45 141/82 H 04/25/24 17:42 80 21 97 04/25/24 17:40 134/92 04/25/24 17:40 134/92 04/25/24 17:40 134/92 04/25/24 17:35 130/97 04/25/24 17:30 131/92 04/25/24 17:28 96 04/25/24 17:28 Room Air 04/25/24 17:27 84 19 96 04/25/24 17:26 145/89 H 04/25/24 17:26 145/89 H 04/25/24 17:24 143/96 H 04/25/24 17:21 84 23 04/25/24 17:18 82 13 04/25/24 17:16 73 04/25/24 17:08 96 H 18 96 Room Air 04/25/24 17:02 36.6 C 76 18 158/89 H 98 Room Air Laboratory Results Reviewed. Diagnostic Findings Reviewed. Medications Administered See MAR. Coding Level of Care Code 95988 CRITICAL CARE 1ST 30-74M Diagnoses ST elevation myocardial infarction (STEMI) I21.3 Involved coronary artery: unspecified coronary artery CAD (coronary artery disease) I25.10 Time Spent (min) 30 (1) ST elevation myocardial infarction (STEMI) Involved coronary artery: unspecified coronary artery Qualified Code(s): I21.3 - ST elevation (STEMI) myocardial infarction of unspecified site
--- NOTE | 2024-04-25 20:34 | Cardiac Catheterization ---
ACC Data: Systems Programmer Analyst Cardiac Status Clinical evaluation leading to the procedure CAD Presenation: Unstable angina (Probable non-STEMI, troponin pending.) Anginal Classification: CCS IV Heart Failure: No Cardiogenic Shock within 24 Hours: No Cardiac Arrest within 24 Hours: No Imaging Studies Past 6 Months: No Stress Studies Past 6 Months: No STEMI OR Non-STEMI Symptom Onset Date: 04/25/24 Coronary Anatomy Dominant: Right Left Main (% Stenosis): Normal LAD (% Stenosis): Proximal (95%) and Mid (50%) D1 (% Stenosis): Normal D2 (% Stenosis): Normal D3 (% Stenosis): Normal Circumflex (% Stenosis): Mid (40%) OM1 (% Stenosis): Normal OM2 (% Stenosis): Proximal (Up to 80%) L PL1 (% Stenosis): Normal RCA (% Stenosis): Mid (70 to 80%) and Distal (50%) R PDA (% Stenosis): Normal R PL1 (% Stenosis): Normal Diagnostic Physicians Name: Denny Scott MD, PhD Closure Device Percutaneous Entry Location: Radial Closure Device: Radial Band Recommendations: Medical Therapy and/or Counseling and PCI without planned CABG PCI Indication: Unstable Angina Lesion Segment Name: Proximal LAD Culprit Artery: Yes Stenosis Prior to Rx (%): 95% Chronic Total Occlusion: No Pre-Procedure PROSPER Flow: 2 Previously Treated Lesion: No Lesion Complexity: Non-High/Non-C Lesion Length (mm): 15 Thrombus Present: Yes Bifurcation Lesion: No Guidewire Across Lesion: Yes Intraprocedure Events Significant Disection: No Perforation: No Cardiac Cath Procedure Full Procedure Date April 25, 2024 Pre-Procedure Diagnosis Pre-Procedure Diagnosis: Acute Coronary Syndrome AUC Score AUC Score: 09 Post-Procedure Diagnosis Post-Procedure Diagnosis: Severe CAD and Successful PCI Procedure(s) Performed Procedure(s) Performed: Coronary Angiography and Drug Eluting Stent Composite Worker Denny Scott MD, PhD Estimated Blood Loss Estimated Blood Loss: 10 cc Medication(s) Medication(s): Fentanyl, Heparin, Lidocaine 1%, Nicardipine, Nitroglycerin and Versed Summary of Findings Brief description: Patient was brought to the cardiac catheterization suite where he was shaved and prepped in a sterile fashion. Sedated using IV Versed and fentanyl. Soft tissues of the right wrist were anesthetized using 2 mL of 1% Xylocaine. The right radial artery was accessed with a modified Seldinger technique and a 6 Croatian radial artery glide sheath was placed. Patient was provided anticoagulation with IV heparin and antispasmodics including nitroglycerin and nicardipine. All catheters were advanced and exchanged over a 0.35 J-tip wire. Left coronary angiography in orthogonal views with a 5 Croatian Flintstone 4 diagnostic catheter. Right coronary angiography in orthogonal views with a 5 Croatian Flintstone 4 diagnostic catheter. Diagnostic catheters were removed. ACT was checked (and repeated intermittently) and additional heparin was provided as needed to maintain therapeutic anticoagulation. A 6 Croatian EBU 3.5 guide catheter was used to engage the left main coronary. A BMW reversal guidewire was advanced and positioned distally in the LAD. Lesion was predilated with a 2.5 x 12 mm trek balloon up to 14 aria. 3.0 x 18 mm [place] drug-eluting stent was then advanced and positioned across the proximal LAD lesion to cover the entire diseased segment and was deployed at 18 aria. Stent balloon removed. Passport Application Examiner angiography was performed. Postdilatation using a 3.5 x 12 mm NC Dionte balloon initially at 15 aira with repositioning so that the proximal edge of the stent in the balloon were aligned up to 18 aria. Balloon was removed. Passport Application Examiner angiography was performed in orthogonal views. Decision made to post dilate the distal portion of the stent further. 3.5 x 8 mm NC Dionte balloon was then positioned with its distal edge at the distal stent margin. Inflation to 17 aria. Balloon was then removed. Guidewire was removed and final angiographic evaluation was performed in orthogonal views after 100 mcg intracoronary nitroglycerin was administered. The guide catheter was then removed. A final ACT was checked. Radial artery sheath was removed. Hemostasis was obtained using the TR band. Patient was hemodynamically stable with resolution of his EKG changes and no significant chest pain. He was then transported to the ICU for further workup and management. This ended the case. Coronary angiography findings: LMT-this is a large-caliber vessel bifurcating into the LAD and circumflex. No angiographically significant disease. LAD-this is a large caliber and transapical vessel. Proximal segment with a long stenosis with some appearance of rupture and mild thrombus. There is PROSPER II flow beyond the lesion and the lesion appears 95% stenosed. This is the culprit lesion. LAD gives a very large septal branch and at the same level there is a medium to large first diagonal followed almost immediately by a large branching second diagonal. The mid LAD has long eccentric 50 to 60% narrowing. There is a medium caliber branching third diagonal and the distal LAD has scattered less than 30% stenosis. RKd-cjyns-ouaiyga vessel traveling in the AV groove. Proximal segment without disease. Gives a small OM1. Mid segment has mild luminal irregularities and then up to 40% stenosis before the ostium of a large branching OM 2. This vessel has complex bifurcation disease with 80% proximal to the bifurcation extending into and continuing as 80% in the superior branch and 70% in the proximal inferior branch. The distal AV groove circumflex becomes smaller and t hen terminates as a small posterolateral branch. [id number]-buqnb-gztsmsl and dominant. Proximally there is mild luminal irregularities then as it approaches the mid symmetric meant there is a long eccentric lesion continuing throughout the mid segment. This appears 70 to 80% stenosed. The lesion ends and then the early distal vessel has a focal 50% stenosis. It then provides some small branches but continues as a large PDA which has luminal irregularities. PCI proximal LAD-95% stenosis reduced to 0% stenosis post PCI PROSPER-3 flow post PCI No evidence of dissection or perforation post PCI Summary: 1. Severe multivessel coronary artery disease as described. Culprit lesion is proximal LAD stenosis. 2. Successful PCI with implantation of a large caliber drug-eluting stent to the proximal LAD. 3. Patient has been placed on dual antiplatelet therapy with aspirin 81 mg daily and Brilinta 90 mg p.o. twice daily. 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 This places him at increased risk for bleeding. We will carefully monitor his H&H for evidence of occult bleeding and his access site for obvious bleeding. If he has significant bleeding he would require platelet transfusion. For this reason, we have chosen to treat only the LAD lesion at this time which was life-threatening. We may consider hematology consultation prior to addressing his residual nonculprit lesions. 4. Patient will be placed on guideline directed medical therapy for secondary prevention of coronary disease. These include; high intensity statin therapy, beta-muna, plus or minus SHREYA inhibitor/ARB. Hemodynamics Rest Ao:: 117/75 mmHg Final Ao: 125/78 mmHg LV: Not performed Recommendations Recommendations: Medical Therapy and/or Counseling and PCI without planned CABG Radiation Exposure (mGy) 2664 mGy, fluoroscopy time 9.1 minutes Contrast (mls) 230 cc Anesthesia 1 mg Versed, 50 mcg fentanyl IV. Start time 1846, end time 1926 Procedural Complication(s) None Disposition ICU I attest to the content of the Intraoperative Record and any orders documented therein. Any exceptions are noted below. CrispifyG Card Cath Procedure Codes Cardiac Catheterization Procedure 1: Cardiovascular Cath Procedures: 60758 Coronaries Moderate Sedation Procedure 1: Sedation/Anesthesia: 46803 Mod Sedation by the same physician;Init15 Min Child Age 5 & Up (Initial 15 minutes, start time 1846) Procedure 2: Sedation/Anesthesia: 85518 Mod Sedation by a different physician ;Init15 Min Child Age 5&Up (Additional 25 minutes, end time 1926) Stenting Procedure 1: Cardiovascular Stent Procedures: 81166 Perc transluminal revascularization of acute sub/total occl, aMI PG Care Time/CCT Total # of Minutes Spent Total Time Spent with Patient: Total time spent is greater than 50% in coordination of care (as documented) at patient's floor/unit and/or counseling patient:
[2024-04-25] MEDS: METOPROLOL TARTRATE 25 MG TAB PO SCH (20:42)
[2024-04-25] MEDS: ICU Protocol for HYPERglycemia SCH (20:43)
[2024-04-25] MEDS: ACETAMINOPHEN 325 MG TAB PO PRN (21:28)
[2024-04-25 23:31] LABS: Basophils # (auto) 0.06 K/uL (0.00-0.20); Basophils % (auto) 0.6 %; Eosinophils # (auto) 0.11 K/uL (0.00-0.50); Eosinophils % (auto) 1.2 %; Hematocrit (blood only) 40.3 % (42.0-52.0); Hemoglobin 13.9 g/dl (14.0-18.0); Immature Granulocytes # (auto) 0.02 K/uL (0.01-0.20); Immature Granulocytes % (auto) 0.2 %; Lymphocytes # (auto) 2.91 K/uL (1.20-3.40); Lymphocytes % (auto) 31.4 %; Mean Corpuscular Hemoglobin 30.9 pg (25.0-34.0); Mean Corpuscular Hgb Conc 34.5 g/dL (32.0-36.0); Mean Corpuscular Volume 89.6 fL (80.0-100.0); Mean Platelet Volume 9.6 fL (9.4-12.4); Monocytes # (auto) 0.55 K/uL (0.11-0.59); Monocytes % (auto) 5.9 %; Neutrophils # (auto) 5.61 K/uL (1.40-6.50); Neutrophils % (auto) 60.7 %; Platelet Count 196 K/uL (130-400); RDW Coefficient of Variation 12.1 % (11.5-14.5); RDW Standard Deviation 39.6 fL (36.4-46.3); White Blood Count 9.26 K/ul (4.8-10.8)
[2024-04-25 23:58] LABS: ANTI-Xa, UFH(UnfractionatedHep 0.26 IU/ml (0.3-0.7)
[2024-04-26 05:10] LABS: Chol HDL Ratio 4.1 (0-5); Magnesium 2.1 mg/dl (1.7-2.4); Phosphorus 3.7 mg/dl (2.5-4.9)
[2024-04-26 05:21] LABS: Troponin I High Sensitivity 5053.9 pg/ml (0-20)
[2024-04-26 07:54] LABS: Estimated Average Glucose 120 mg/dl; Hemoglobin A1C 5.8 % (4.5-5.6)
[2024-04-26] MEDS: ATORVASTATIN 40 MG TAB PO SCH (08:21)
[2024-04-26] MEDS: ASPIRIN 81 MG ECTAB PO SCH (08:21)
[2024-04-26] MEDS: TICAGRELOR 90 MG TAB PO SCH (08:21)
--- NOTE | 2024-04-26 08:37 | Electrocardiogram Report ---
Test Reason : Blood Pressure : */* mmHG Vent. Rate : 86 BPM Atrial Rate : 86 BPM P-R Int : 160 ms QRS Dur : 90 ms QT Int : 368 ms P-R-T Axes : 52 5 61 degrees QTcB Int : 440 ms Normal sinus rhythm Left atrial enlargement ST depression in Lateral leads , consider ischemia Abnormal ECG When compared with ECG of 25-Apr-2024 17:20, No significant change was found Confirmed by Dony Craven ([id number]) on 04/26/2024 8:36:55 AM Referred By: REFERRED SELF Confirmed By: Dony Craven
--- NOTE | 2024-04-26 08:38 | Electrocardiogram Report ---
Test Reason : Blood Pressure : */* mmHG Vent. Rate : 77 BPM Atrial Rate : 77 BPM P-R Int : 158 ms QRS Dur : 92 ms QT Int : 374 ms P-R-T Axes : 72 73 33 degrees QTcB Int : 423 ms Normal sinus rhythm Left atrial enlargement Minor Nonspecific ST abnormality Anterolateral leads Borderline ECG When compared with ECG of 31-Oct-2022 19:51, Nonspecific ST abnormality now present Confirmed by Dony Craven ([id number]) on 04/26/2024 8:37:44 AM Referred By: REFERRED SELF Confirmed By: Dony Craven
--- NOTE | 2024-04-26 08:38 | Electrocardiogram Report ---
Test Reason : Blood Pressure : */* mmHG Vent. Rate : 80 BPM Atrial Rate : 80 BPM P-R Int : 170 ms QRS Dur : 90 ms QT Int : 384 ms P-R-T Axes : 54 57 55 degrees QTcB Int : 442 ms Normal sinus rhythm Left atrial enlargement ST depression in Anterolateral leads , consider ischemia Abnormal ECG When compared with ECG of 25-Apr-2024 17:06, ST now depressed in Anterolateral leads Confirmed by Dony Craven ([id number]) on 04/26/2024 8:38:18 AM Referred By: REFERRED SELF Confirmed By: Dony Craven
--- NOTE | 2024-04-26 08:39 | Electrocardiogram Report ---
Test Reason : Blood Pressure : */* mmHG Vent. Rate : 78 BPM Atrial Rate : 78 BPM P-R Int : 170 ms QRS Dur : 92 ms QT Int : 394 ms P-R-T Axes : 47 53 32 degrees QTcB Int : 449 ms Normal sinus rhythm Left atrial enlargement Borderline ECG When compared with ECG of 25-Apr-2024 17:24, ST no longer depressed in Anterolateral leads Confirmed by Dony Craven ([id number]) on 04/26/2024 8:38:44 AM Referred By: REFERRED SELF Confirmed By: Dony Craven
--- NOTE | 2024-04-26 09:33 | XCELERA ---
[id number] \\[id number]
--- NOTE | 2024-04-26 09:58 | Critical Care Progress Note ---
Date of Service April 26, 2024 Assessment & Plan (1) CAD (coronary artery disease): (2) Platelet storage pool disease: (3) ST elevation myocardial infarction (STEMI): Plan Coronary cath revealed severe multivessel coronary artery disease and the culprit lesion was a proximal LAD stenosis which was stented with a drug-eluting stent. Patient has been doing well hemodynamically and is stable for downgrade to PCU. Echo results reviewed. Continue aspirin, statin, Brilinta and metoprolol per cardiology recommendations. Discussed on multidisciplinary rounds and with cardiology. Patient with a history of platelet storage pool disease. Monitor for signs of bleeding while on antiplatelet therapy. Admission and Anticipated Discharge Date Admission Date: April 25, 2024 Subjective Patient seen and examined. Having mild substernal discomfort which is improved compared to yesterday. No fevers or chills. No nausea or vomiting. Review of Systems Review of Systems: All systems reviewed & are unremarkable except as noted in HPI & below Physical Exam Constitutional: WD/WN, vitals as above Eyes: PERRL, conjunctivae normal, anicteric sclerae ENMT: external ear and nose normal, oropharynx normal Neck: trachea midline, no thyromegaly Respiratory: normal respiratory effort, lungs clear to auscultation Cardiovascular: RRR, no murmur, no edema R radial access site hemostatic with dressing C/D/I. Capillary refill WNL. Gastrointestinal (Abdomen): normal bowel sounds, soft, nontender, no hepatosplenomegaly Skin: no rashes, warm and dry Neurologic: PERRL, EOMI, accommodation nl, no face palsy, no dysarthria Results & Data Results & Data Vital Signs (Past 12 Hours) Vital Signs Temp Pulse Resp BP Pulse Ox 04/26/24 06:00 121/86 04/26/24 06:00 121/86 04/26/24 05:51 54 L 15 97 04/26/24 05:03 53 L 12 96 04/26/24 05:00 114/78 04/26/24 05:00 114/78 04/26/24 04:57 54 L 16 96 04/26/24 04:39 56 L 13 97 04/26/24 04:20 36.8 C 04/26/24 04:00 120/85 04/26/24 03:57 65 14 96 04/26/24 00:07 36.7 C 04/26/24 00:03 60 17 98 04/26/24 00:00 67 04/26/24 00:00 129/76 04/26/24 00:00 129/76 04/26/24 00:00 129/76 04/25/24 23:57 59 L 14 98 04/25/24 23:30 65 14 95 04/25/24 23:09 59 L 12 97 04/25/24 23:00 124/78 04/25/24 22:51 59 L 15 98 04/25/24 22:36 56 L 15 97 04/25/24 22:30 123/80 04/25/24 22:30 123/80 04/25/24 22:21 61 15 96 Coding Level of Care Code 90594 SUB INP/OBS CARE MIN Diagnoses CAD (coronary artery disease) I25.10 Platelet storage pool disease D69.1 ST elevation myocardial infarction (STEMI) I21.3 Involved coronary artery: unspecified coronary artery (3) ST elevation myocardial infarction (STEMI) Involved coronary artery: unspecified coronary artery Qualified Code(s): I21.3 - ST elevation (STEMI) myocardial infarction of unspecified site
--- NOTE | 2024-04-26 13:21 | Hospitalist Progress Note ---
Date of Service April 26, 2024 Assessment & Plan (1) Chest pain: Plan: Acute anterior wall NH on April 25 was definitively treated with left heart catheterization and subsequent angioplasty and drug-eluting stent placement in the proximal LAD. Cardiac echo done today, April 26, reveals a small area of anteroseptal akinesis with preserved ejection fraction. This could eventually normalize and will need further outpatient follow-up. Continue current medical management. Appreciate cardiology consultation and recommendations. (2) ST elevation myocardial infarction (STEMI): Plan: Anterior wall STEMI present on admission on April 25. He underwent emergent left heart catheterization and subsequent placement of drug-eluting stent in the proximal LAD. (3) Platelet storage pool disease: Plan: By history. Serial labs Plan Possible discharge tomorrow evening, April 27. Admission and Anticipated Discharge Date Admission Date: April 25, 2024 Subjective Alert and oriented. Hemodynamically stable. is at the bedside. Cardiac echo done today, April 26, reveals a small area of anteroseptal akinesis but ejection fraction is preserved. He had a drug-eluting stent placed in the proximal LAD yesterday, April 25. Cardiology would like to have this patient hospitalized for at least 48 hours. He could possibly be discharged tomorrow evening. Review of Systems 2 Review of Systems: Constitutionalno fever or chills ENTno blurred vision, no double vision, no epistaxis, no sore throat Respiratoryno cough, no wheezing, no shortness of breath Cardiacno palpitations, no syncope. Vague nonpalpable, mild left parasternal discomfort from acute anterior NH. Jose A nausea, vomiting, diarrhea, melena, hematochezia GUno urinary retention, no urinary incontinence, no dysuria, no hematuria Musculoskeletalno joint pain, no muscle tenderness Skinno bruising, no rashes, no pruritus Neurono isolated weakness, no paresthesia, no weakness Psychno depression, no anxiety Physical Exam 2 Physical Exam: General-alert and oriented x3, no fever, no chills HEENT-head atraumatic and normocephalic, pupils equal and reactive to light, extraocular muscles intact Neck-no lymphadenopathy or thyromegaly, trachea midline Chest-clear to auscultation. No rales, wheezing or rhonchi Cardiac-regular rate and rhythm, normal S1 and S2 Abdomen-normal bowel sounds, no hepatosplenomegaly Extremities-no cyanosis, clubbing, or edema Neuro-cranial nerves II through XII intact, motor and sensory function within normal limits, strength symmetrical, no focal deficits Psych-normal affect, normal mood Results & Data Results & Data Vital Signs (Past 12 Hours) Vital Signs Temp Pulse Resp BP Pulse Ox 04/26/24 06:00 121/86 04/26/24 06:00 121/86 04/26/24 05:51 54 L 15 97 04/26/24 05:03 53 L 12 96 04/26/24 05:00 114/78 04/26/24 05:00 114/78 04/26/24 04:57 54 L 16 96 04/26/24 04:39 56 L 13 97 04/26/24 04:20 36.8 C 04/26/24 04:00 120/85 04/26/24 03:57 65 14 96 Laboratory Results 04/25/24 23:00 04/25/24 17:18 PG Care Time/CCT Total # of Minutes Spent Total Time Spent with Patient: Total time spent is greater than 50% in coordination of care (as documented) at patient's floor/unit and/or counseling patient: Coding Level of Care Code 18042 SUB INP/OBS CARE 2/35MIN Diagnoses Chest pain R07.9 ST elevation myocardial infarction (STEMI) I21.3 Involved coronary artery: unspecified coronary artery Platelet storage pool disease D69.1 (2) ST elevation myocardial infarction (STEMI) Involved coronary artery: unspecified coronary artery Qualified Code(s): I 21.3 - ST elevation (STEMI) myocardial infarction of unspecified site
--- NOTE | 2024-04-26 13:29 | Electrocardiogram Report ---
Test Reason : Blood Pressure : */* mmHG Vent. Rate : 78 BPM Atrial Rate : 78 BPM P-R Int : 178 ms QRS Dur : 94 ms QT Int : 382 ms P-R-T Axes : 56 68 18 degrees QTcB Int : 435 ms Normal sinus rhythm Normal ECG When compared with ECG of 25-Apr-2024 17:30, No significant change was found Confirmed by Dony Craven ([id number]) on 04/26/2024 1:29:36 PM Referred By: REFERRED SELF Confirmed By: Dony Craven
--- NOTE | 2024-04-26 16:54 | Cardiology Consultation ---
Date of Consultation April 26, 2024 Assessment & Plan (1) Non-ST elevation IN (NSTEMI): Elevated troponin but the patient did not meet criteria for ST elevation IN. He is now asymptomatic and tolerated his PCI. Also tolerating his antiplatelets thus far. Fortunately, we were able to use an [place] drug-eluting stent which would allow for discontinuation of dual antiplatelet therapy as soon as 30 days post implantation if needed for emergency reason. Also, chose Brilinta over Plavix because of its more rapid onset and offset once removed from the regimen. If the patient has significant bleeding the treatment will be as recommended for platelet storage pool disease. Currently, we plan for the patient to remain on dual antiplatelet therapy with aspirin 81 mg daily and Brilinta 90 mg p.o. twice daily for the first 30 days. After that, we will either continue the Brilinta or switch to Plavix and consider discontinuation of dual antiplatelet therapy as early as 6 months. We will continue with guideline directed medical therapy for secondary prevention of coronary disease. This should include high intensity statin therapy, beta-muna, plus or minus SHREYA inhibitor/ARB. (2) Platelet storage pool disease: This complicates the stent and antiplatelet regimen. However, he is tolerating thus far and the risk of abstaining from these medications is worse than the potential bleeding. We can utilize platelet transfusion if he gets into a big problem with bleeding. If things become complicated will consult with hematology. (3) Hyperlipidemia: Patient is high risk. High intensity statin therapy has been initiated. Regimen will be titrated to target as an outpatient. Plan As long as the patient remains stable he will be appropriate for transfer to stepdown unit. Anticipate he will be ready for discharge as early as tomorrow afternoon. History of Present Illness Reason for Consultation: Chest pain Concerning EKG Attending Physician: Cristian Seals MD History of Present Illness This is a 53-year-old gentleman without prior cardiac history who presented last evening to the [facility] ED department after he developed sudden onset chest pain, shortness of breath, and diaphoresis. He was seen in the emergency department and his EKG demonstrated evidence of myocardial ischemia. He had modest ST elevations in the anterior leads which did not meet criteria for acute ST elevation IN. However, he did have reciprocal ischemic changes in the inferolateral leads. His chest discomfort was waxing and waning. He received aspirin and heparin. I was asked to see him regarding these symptoms and the concerning findings. On my arrival the patient did not seem to be overtly in distress. He did have some mild chest tightness. He admitted that he had had several days of intermittent chest discomfort but that the discomfort he felt today was more severe and more protracted. 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 He had frequent extensive nosebleeds as a child. He never had genetic testing to determine which variant he had but he did see hematology for the diagnosis. He has therefore listed aspirin as an allergy. He does not utilize tobacco. He is accompanied by his . He denies any syncope, near syncope, orthopnea, PND, racing heartbeat, palpitations, or edema. No other complaints or concerns at the time of evaluation. Because of his dynamic and concerning EKG changes in association with his typical symptoms I recommended to the patient that we proceed directly to the cardiac catheterization suite for definitive evaluation by coronary angiography plus or minus PCI as indicated. He agreed to this and there we found that he had severe multivessel disease with the target/culprit for his acute coronary syndrome being the proximal LAD. He therefore underwent implantation of a large caliber stent in the proximal LAD with good angiographic results. By the end of the procedure he had minimal chest discomfort. He has subsequently been admitted to the ICU for further workup and management. Patient reports no significant anginal chest discomfort. He does have tightness while I am speaking with him which is minimal and much improved even compared to after his stent. He states he had none while he was resting overnight but when he sat up he felt a little bit of pressure. He has not had any bleeding thus far. No significant arrhythmias. No other complaints or concerns at this time. Allergies Allergy/AdvReac Type Severity Reaction Status Date / Time aspirin Allergy Intermediate "STORAGE Unverified 01/05/24 07:57 POOL SYNDROME" Home Medications Medication Instructions Recorded Confirmed Type cetirizine 10 mg tablet (Zyrtec) 10 mg PO DAILY 10/30/22 04/25/24 History multivitamin 1 tab PO QAM 10/30/22 04/25/24 History Patient History Medical History Borderline Lyme serology Dehydration Elevated CPK Surgical History No history of previous surgery Family History Grandfather (Paternal) Myocardial infarction Prostate cancer Grandfather (Maternal) Myocardial infarction Father Prostate cancer Sister Diabetes Denies family history of Ovarian cancer Breast cancer Colorectal cancer Stroke Social History Smoking Status: Never smoker Second Hand Exposure: No; Do You Dip or Chew Tobacco: No; Hx Alcohol Use: No Hx Substance Use: No Preferred Language: Syriac Communication Ability: Effective Visual Impairment: Limited Hearing Ability: Normal Hog Cutter Required: No Beliefs That Will Affect Care: None marital status: Current Living Situation: Spouse current occupational status: employed current occupation: [employer] How many Children do You have: 2 Feels Safe at Home: Yes Childhood Exposure to Second-Hand Smoke: No caffeine: Yes Dental Care, Regularly: Yes Physical Activity Frequency: 1-2 Times per Week Seatbelt Use: always Sunscreen Use: No Assistive Devices: None Review of Systems Review of Systems: Negative except as per HPI Physical Exam Constitutional: WD/WN, vitals as above Eyes: Extraocular muscle intact. Sclera are anicteric. Neck: No JVD Respiratory: Clear to auscultation bilaterally. No wheezing, rhonchi, or rales. Cardiovascular: Regular rate and rhythm. S4 gallop. No rubs or murmurs. Musculoskeletal: no cyanosis or clubbing, extremities motor strength 5/5 Neurologic: Cognition is intact. Speech is fluent. No focal deficits. Psychiatric: A+Ox3, euthymic affect (Mildly anxious) Results & Data Vital Signs (Past 12 Hours) Vital Signs Temp Pulse Resp BP Pulse Ox O2 Del Method 04/26/24 14:03 66 18 96 04/26/24 13:06 71 15 96 04/26/24 12:03 71 17 95 Room Air 04/26/24 12:00 134/80 04/26/24 11:57 71 16 95 04/26/24 11:56 36.7 C 04/26/24 11:00 139/89 04/26/24 11:00 61 13 97 04/26/24 10:30 56 L 14 98 04/26/24 10:00 133/87 04/26/24 10:00 133/87 04/26/24 09:24 64 16 96 04/26/24 09:03 73 17 95 Room Air 04/26/24 09:00 143/94 H 04/26/24 09:00 143/94 H 04/26/24 09:00 143/94 H 04/26/24 08:06 70 14 95 04/26/24 08:00 137/93 04/26/24 08:00 137/93 04/26/24 08:00 36.7 C 04/26/24 07:33 68 16 98 04/26/24 07:09 70 23 98 04/26/24 07:00 142/93 H 04/26/24 06:00 121/86 04/26/24 06:00 121/86 04/26/24 05:51 54 L 15 97 04/26/24 05:03 53 L 12 96 04/26/24 05:00 114/78 04/26/24 05:00 114/78 04/26/24 04:57 54 L 16 96 PG Care Time/CCT Total # of Minutes Spent Total Time Spent with Patient: Total time spent is greater than 50% in coordination of care (as documented) at patient's floor/unit and/or counseling patient: A total of 70 minutes critical care time was spent in the initial evaluation and examination of the patient, review of his records, discussion with the patient, , ED care team, ICU care team, formulation and implementation of a plan of care and all associated documentation. This time is exclusive of the time spent on his procedure. Coding Level of Care Code 79245 CRITICAL CARE 1ST 30-74M Diagnoses Non-ST elevation IN (NSTEMI) I21.4 Platelet storage pool disease D69.1 Hyperlipidemia E78.5 Time Spent (min) 70
[2024-04-26 20:41] LABS: Basophils # (auto) 0.06 K/uL (0.00-0.20); Basophils % (auto) 0.8 %; Eosinophils # (auto) 0.21 K/uL (0.00-0.50); Eosinophils % (auto) 2.8 %; Hematocrit (blood only) 42.3 % (42.0-52.0); Hemoglobin 14.7 g/dl (14.0-18.0); Immature Granulocytes # (auto) 0.01 K/uL (0.01-0.20); Immature Granulocytes % (auto) 0.1 %; Lymphocytes # (auto) 2.84 K/uL (1.20-3.40); Lymphocytes % (auto) 37.6 %; Mean Corpuscular Hemoglobin 31.1 pg (25.0-34.0); Mean Corpuscular Hgb Conc 34.8 g/dL (32.0-36.0); Mean Corpuscular Volume 89.6 fL (80.0-100.0); Mean Platelet Volume 9.6 fL (9.4-12.4); Monocytes # (auto) 0.76 K/uL (0.11-0.59); Monocytes % (auto) 10.1 %; Neutrophils # (auto) 3.68 K/uL (1.40-6.50); Neutrophils % (auto) 48.6 %; Platelet Count 190 K/uL (130-400); RDW Coefficient of Variation 12.1 % (11.5-14.5); RDW Standard Deviation 39.8 fL (36.4-46.3); Red Blood Count 4.72 M/uL (4.70-6.10); White Blood Count 7.56 K/ul (4.8-10.8)
[2024-04-27 07:23] VITALS: O2SAT 98
[2024-04-27 07:35] LABS: BUN Creatinine Ratio 19.6 (10-20); Calcium 9.8 mg/dl (8.6-10.3); Creatinine Clr Calc Pharmacy 102.1 ml/min; Potassium 4.2 mmol/L (3.5-5.1)
[2024-04-27 11:12] VITALS: BP 123/84; PULSE 62; RESP 17; TEMP 97.3
--- NOTE | 2024-04-27 11:31 | Discharge Summary ---
Discharge Summary Date of Service April 27, 2024 Principal Dx & Hospital Course #1 = Principal Diagnosis (1) Chest pain: Acute anterior wall NSTEMI on April 25 was definitively treated with left heart catheterization and subsequent angioplasty and drug-eluting stent placement in the proximal LAD. Cardiac echo revealed a small area of anteroseptal akinesis with preserved ejection fraction. This could eventually normalize and will need further outpatient follow-up. Continue current medical management. Appreciate cardiology consultation and recommendations. (2) ST elevation myocardial infarction (STEMI): Anterior wall NSTEMI present on admission on April 25. He underwent emergent left heart catheterization and subsequent placement of drug-eluting stent in the proximal LAD. (3) Platelet storage pool disease: By history. Serial labs Plan Home this afternoon, April 27. Admission HPI Per Admitting Provider Rashad is a 53-year-old male with a past medical history of anxiety and vertigo who presents to the hospital with chest pain. Reports that he was having chest pain on and off for the last week with activity, and this resolved on its own. However, chest pain today started while he was simply driving his car. When he got home he attempted to take his dogs out and the chest pain worsened he said he could not stand straight and was short of breath. He is also little bit dizzy at this time. Denies history of cardiac problems himself but extensive cardiac history in his grandparents. Upon evaluation he was chest pain-free but he just received a dose of nitroglycerin. This was not his first dose and in between his second and third dose the chest pain did return. He is not short of breath at this time. ED course: Aspirin 324 mg p.o. Nitroglycerin 0.4 mg x 3 Heparin drip with bolus Discharge Exam General-alert and oriented x3, no fever, no chills HEENT-head atraumatic and normocephalic, pupils equal and reactive to light, extraocular muscles intact Neck-no lymphadenopathy or thyromegaly, trachea midline Chest-clear to auscultation. No rales, wheezing or rhonchi Cardiac-regular rate and rhythm, normal S1 and S2 Abdomen-normal bowel sounds, no hepatosplenomegaly Extremities-no cyanosis, clubbing, or edema Neuro-cranial nerves II through XII intact, motor and sensory function within normal limits, strength symmetrical, no focal deficits Psych-normal affect, normal mood Discharge Plan Discharge Items Patient Disposition: Home - Self-Care Reason For Visit: CHEST PAIN Discharge Diagnosis: Anterior non-ST elevation [place] Activity: Per Instructions section Activity Comment: Avoid overexertion. Stay off work until cleared to return by your primary Non-emergency contact: Primary Care Provider and Calciner Operator Call non-emergency contact if: you have any medication questions and your symptoms worsen Follow-up/Referrals: Ned Carcamo, [Primary Care Provider] - Diet: Regular and Heart Healthy Addtl Attending Provider Instructions: Take all medications as directed. Use nitroglycerin tablets under the tongue as needed for any recurrent chest discomfort as instructed. Remain off work until cleared to return to work by either PCP or medical director/head team physician. Prescriptions have been sent to [facility] pharmacy Pending Studies at Discharge: No Stand-Alone Forms: [facility] XTWIP, Smoking Cessation Medications and DC Order Prescriptions: New atorvastatin 40 mg Tablet 40 mg PO QAM Qty: 30 0RF metoprolol tartrate 25 mg Tablet 25 mg PO BID Qty: 60 0RF Brilinta 90 mg Tablet 90 mg PO BID Qty: 60 0RF nitroglycerin 0.4 mg tablet, sublingual 0.4 mg sublingual Q5M PRN (Reason: chest pain) Qty: 25 0RF aspirin 81 mg Tablet,Delayed Release (Dr/Ec) 81 mg PO QAM Qty: 0 0RF Continued multivitamin Tablet 1 tab PO QAM cetirizine [Zyrtec] 10 mg Tablet 10 mg PO DAILY Discharge Orders: Discharge Order (Routine); Ordered 04/27/24 Ordered By: Cristian Seals Admission Data Admit Date/Time: 04/25/24 18:37 Attending Provider: Cristian Seals Admit Provider: Jose Manuel Harkins Primary Care Provider: Ned Carcamo Other Providers: Denny Scott; Jose Manuel Harkins; Phu Burnham Hospital Stay Data Consultations 04/25/24 17:32 Consult Cardiology Stat ED Decision to Admit Stat 04/25/24 20:03 Consult Parts Specialist Routine 04/25/24 20:05 Consult Cardiac Rehabilitation Routine Procedures Performed Operation Date: 04/25/24 18:30 Actual Procedures p Cineradiography w/Routine Exam - Denny Scott MD, PhD p Aspiration/PCI w/MADY for Stemi - Denny Scott MD, PhD Diagnostic Imagining Performed 04/25/24 18:21 CL Cath Imgs for PACS use only Stat Pending Results Patient Have Any Pending Studies at Discharge: No Discharge Instructions Given to Patient (Per Discharging Provider) Take all medications as directed. Use nitroglycerin tablets under the tongue as needed for any recurrent chest discomfort as instructed. Remain off work until cleared to return to work by either PCP or medical director/head team physician. Prescriptions have been sent to [facility] pharmacy Total Time Total Time Spent Total Time Spent (In Minutes): 50-minute Coding Level of Care Code 30730 INP/OBS DISCH >30 MIN Diagnoses Chest pain R07.9 ST elevation myocardial infarction (STEMI) I21.3 Involved coronary artery: unspecified coronary artery Platelet storage pool disease D69.1
--- NOTE | 2024-04-27 13:02 | Cardiology Progress Note ---
Date of Service April 27, 2024 Assessment & Plan (1) Non-ST elevation [place] (NSTEMI): Plan: 1. Continue dual antiplatelet therapy with aspirin and Brilinta 2. Continue guideline directed medical therapy for secondary prevention of coronary disease with aspirin, beta-muna, statin. 3. Follow-up with cardiology 1 to 3 weeks (Dr. Scott, [facility] cardiology) 4. Cardiac rehab 5. Post cath/PCI instructions will be provided at discharge Admission and Anticipated Discharge Date Admission Date: April 25, 2024 Subjective Patient seen this morning. Doing well without any chest pain. Tolerating his medications and no bleeding. He will contact me if he has any bleeding issues arise after discharge. We discussed importance of beginning cardiac rehab. He will be provided with post PCI instructions. At this time he is appropriate for discharge. Review of Systems Review of Systems: Negative except as per HPI Physical Exam Constitutional: WD/WN, vitals as above Eyes: Extraocular muscle intact. Sclera are anicteric. Neck: No JVD Respiratory: Clear to auscultation bilaterally. No wheezing, rhonchi, or rales. Cardiovascular: Regular rate and rhythm. S4 gallop. No rubs or murmurs. Musculoskeletal: no cyanosis or clubbing, extremities motor strength 5/5 Neurologic: Cognition is intact. Speech is fluent. No focal deficits. Psychiatric: A+Ox3, euthymic affect (Mildly anxious) Results & Data Vital Signs (Past 12 Hours) Vital Signs Temp Pulse Pulse Resp BP Pulse Ox O2 Del Method 04/27/24 11:42 36.3 C L 62 17 123/84 98 04/27/24 11:11 36.3 C L 62 17 123/84 98 Room Air 04/27/24 07:22 36.4 C L 63 18 128/76 98 Room Air 04/27/24 06:59 65 04/27/24 03:18 36.5 C 64 18 108/71 97 Room Air PG Care Time/CCT Total # of Minutes Spent Total Time Spent with Patient: Total time spent is greater than 50% in coordination of care (as documented) at patient's floor/unit and/or counseling patient: Coding Level of Care Code 41108 SUB INP/OBS CARE 04/13MIN Diagnoses Non-ST elevation CO (NSTEMI) I21.4
== END 2024-04-27 14:04 | disposition home or self-care (01) | DRG 322 ==
LOC: ED 17:01 → CC 18:36 → SUATTDRO 18:37 → 1E 18:37 → CC 18:45 → 2S 04-26 19:25

== ENCOUNTER 2024-09-19 11:25 | Inpatient (IN) ==
[2024-09-19] MEDS: ASPIRIN CHEW 324 MG PO STA (11:46)
[2024-09-19] MEDS: ASPIRIN CHEW 324 MG ONE (11:47)
[2024-09-19] MEDS: NITROGLYCERIN SL 0.4 MG/TAB TAB ONE (11:48)
[2024-09-19 12:00] LABS: Hematocrit (blood only) 39.3 % (42.0-52.0); Hemoglobin 13.4 g/dl (14.0-18.0); Immature Granulocytes # (auto) 0.03 K/uL (0.01-0.20); Immature Granulocytes % (auto) 0.3 %; Mean Corpuscular Hemoglobin 31.2 pg (25.0-34.0); Mean Corpuscular Volume 91.6 fL (80.0-100.0); Platelet Count 162 K/uL (130-400); RDW Standard Deviation 42.5 fL (36.4-46.3); Red Blood Count 4.29 M/uL (4.70-6.10); White Blood Count 9.04 K/ul (4.8-10.8)
--- NOTE | 2024-09-19 12:05 | Emergency Department Note ---
Impression & Plan Chest pain, Abnormal ECG, Elevated glucose ED Provider Note NAME: SHREYA ANTHONY AGE: 54 SEX: M : 1970 ARRIVES VIA: Walk-In INFORMANT: Patient ED PROVIDER(S): Jarett Lambert DO CHIEF COMPLAINT: Chest pain HPI: Patient is a 54-year-old male with a past medical history of NSTEMI with stents on Plavix and aspirin who presents the ER for chest pain. Initially started yesterday and was intermittent. It was slightly worse with breathing. Today has progressed and has been more constant since last night. No arm pain or jaw pain. He notes this feels different than his previous AL. Denies any nausea, vomiting, or diarrhea. No dysuria, urgency or frequency. No other exacerbating or remitting factors. Sitting upright improves the pain while leaning forward or laying back makes it worse. No recent cough or congestion. ADDITIONAL HISTORY OBTAINED: Per HPI Chronic Medical/Social Conditions Affecting Care: Per HPI PAST MEDICAL HISTORY:See Below PAST SURGICAL HISTORY:See Below FAMILY HISTORY:See Below SOCIAL HISTORY:See Below HOME MEDICATIONS:See Below ALLERGIES:See Below VITALS:See Below PHYSICAL EXAMINATION: GENERAL: Sitting up in bed, alert, well appearing, well nourished, no distress, non-toxic EYE EXAM: normal conjunctiva. OROPHARYNX: mucous membranes are moist NECK: supple, no nuchal rigidity, no adenopathy, non-tender LUNGS: Clear to auscultation. Normal chest wall mechanics HEART: no murmurs, S1 normal and S2 normal ABDOMEN: abdomen soft, non-tender, normo-active bowel sounds, no masses, no rebound or guarding. UPPER EXTREMITIES: upper extremities are grossly normal. LOWER EXTREMITIES: No pitting edema. Calves are equal bilaterally NEURO EXAM: Normal sensorium, cranial nerves II-XII grossly intact, normal speech, no gross weakness of arms, no gross weakness of legs. MEDICAL DECISION MAKING: Patient is a 54-year-old male who presents ER for above-stated complaint. IV was established and blood work was obtained. On arrival initial EKG showed ST segment elevations which are new in comparison to previous. Discussed with the patient at bedside and symptoms do not appear to be consistent with a STEMI however repeat EKG confirms EKG findings. I discussed with interventional cardiology Dr. William who presented at bedside. Chest x-ray was unremarkable. Patient was given aspirin and nitro. No improvement with nitro. 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 Contacted the hospitalist for further evaluation management treatment. Labs show no significant leukocytosis or anemia. BMP along LFTs bilirubin was remarkable for T. bili at 1.5. Lipase was normal. Troponin negative. Patient was admitted for further workup to the hospital service. Consults/Care Managements Discussions: Per [facility] Triage Nursing notes reviewed. Limited review of prior medical records performed Vital Signs: reviewed and remarkable for no significant abnormalities Differential diagnosis: Cardiac ischemia, aortic dissection, pulmonary embolism, pneumothorax, pneumonia, pericarditis, myocarditis, esophageal rupture, GERD, cholecystitis, pancreatitis, musculoskeletal, as well as other pathologies. ER treatment provided: See below Diagnostics interpreted by me include EKG and cardiac monitoring as listed below: -Cardiac Monitoring: An order was placed for continuous cardiac monitoring. The monitor shows a rate of 70 with sinus rhythm. -ECG: Sinus rhythm rate of [address] segment elevations in the inferior leads as well as V6 with ST depressions in aVR and T wave inversion in aVR and V1 EKG #2 Sinus rhythm rate of 71 ST segment elevations in the inferior leads as well as V6 T wave inversions and ST depressions in aVR and V1 QTc 412 -Laboratory studies:Interpreted by me as stated above in MDM and shown below. Imaging studies: Xrays: As interpreted by me: Portable AP upright 1 view of the chest shows no focal infiltrate CTs show: none Procedures:none Critical Care: None Past Med/Surg History Problem List (Updated 09/19/24 @ 14:39 by Jarett Lambert DO) Elevated glucose (Acute) Abnormal ECG (Acute) Chest pain (Acute) Daytime somnolence HTN (hypertension) Non-ST elevation AL (NSTEMI) Protrusion of cervical intervertebral disc Generalized anxiety disorder Vertigo (Acute) Pre-diabetes Medical History History of myocardial infarction Platelet storage pool disease CAD (coronary artery disease) Hyperlipidemia Cervical radiculopathy Borderline Lyme serology Dehydration Elevated CPK Surgical History History of cardiac cath History of heart artery stent No history of previous surgery Family History Grandfather (Paternal) Myocardial infarction Prostate cancer Grandfather (Maternal) Myocardial infarction Father Prostate cancer Sister Diabetes Denies family history of Ovarian cancer Breast cancer Colorectal cancer Stroke Social History Smoking Status: Never smoker Second Hand Exposure: No; Do You Dip or Chew Tobacco: No; Hx Alcohol Use: No Hx Substance Use: No Preferred Language: Guinean Communication Ability: Effective Visual Impairment: Limited Hearing Ability: Normal 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 And Outsole Preparer Required: No Beliefs That Will Affect Care: None marital status: Current Living Situation: Family current occupational status: employed 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 [employer] How many Children do You have: 2 Feels Safe at Home: Yes Childhood Exposure to Second-Hand Smoke: No caffeine: Yes Dental Care, Regularly: Yes Physical Activity Frequency: 1-2 Times per Week Seatbelt Use: always Sunscreen Use: No Assistive Devices: None Allergies Allergies Allergy/AdvReac Type Severity Reaction Status Date / Time aspirin Allergy Intermediate "STORAGE Unverified 07/16/24 14:13 POOL SYNDROME" Home Meds Home Medications Medication Instructions Recorded Confirmed multivitamin 0 tab PO QAM 10/30/22 09/19/24 cetirizine 10 mg tablet (Zyrtec) 0 mg PO DAILY PRN allergies 05/03/24 09/19/24 aspirin 81 mg tablet,delayed 0 mg PO QAM 09/19/24 09/19/24 release oxycodone 5 mg tablet 0 mg PO Q8H PRN pain 09/19/24 09/19/24 Previous Rx's Medication Instructions Recorded nitroglycerin 0.4 mg sublingual 0.4 mg sublingual Q5M PRN chest 04/27/24 tablet pain #25 tabs atorvastatin 40 mg tablet 40 mg PO QAM #30 tabs 05/21/24 metoprolol tartrate 25 mg tablet 25 mg PO BID #60 tabs 05/21/24 clopidogrel 75 mg tablet 75 mg PO DAILY #90 tabs 07/09/24 Knee Scooter #1 ea 08/06/24 Results & Data (ED) Vital Signs Vital Signs - 24 hr 09/19/24 11:29 09/19/24 11:36 09/19/24 11:40 Temperature 36.9 C Temperature Source Temporal Artery Scan Pulse Rate 71 Pulse Rate [Apical] 70 Pulse Rate from SpO2 Sensor Respiratory Rate 15 15 Respiratory Effort / Characteristics Non-Labored Spontaneous Non-Labored Spontaneous Respiratory Depth Normal Normal Respiratory Pattern Regular Blood Pressure 120/68 Blood Pressure [Right Arm] 124/79 Blood Pressure Mean 85 Blood Pressure Mean [Right Arm] 94 Pulse Oximetry 97 97 Oxygen Delivery Method Room Air Room Air Room Air Sepsis Recent Fever Within 48 Hours No Sepsis New/Unexplained Change in Mental Status N/A Sepsis Action Taken by Nursing No Action Required 09/19/24 11:41 09/19/24 11:45 09/19/24 12:00 Temperature Temperature Source Pulse Rate 70 71 Pulse Rate [Apical] Pulse Rate from SpO2 Sensor 71 Respiratory Rate 21 Respiratory Effort / Characteristics Respiratory Depth Respiratory Pattern Blood Pressure 123/78 Blood Pressure [Right Arm] Blood Pressure Mean 93 Blood Pressure Mean [Right Arm] Pulse Oximetry 97 Oxygen Delivery Method Room Air Sepsis Recent Fever Within 48 Hours Sepsis New/Unexplained Change in Mental Status Sepsis Action Taken by Nursing 09/19/24 12:26 09/19/24 12:39 09/19/24 12:59 Temperature Temperature Source Pulse Rate 67 Pulse Rate [Apical] 69 68 Pulse Rate from SpO2 Sensor 66 Respiratory Rate 20 19 20 Respiratory Effort / Characteristics Non-Labored Non-Labored Spontaneous Respiratory Depth Normal Normal Respiratory Pattern Blood Pressure 126/79 Blood Pressure [Right Arm] 125/76 Blood Pressure Mean 94 Blood Pressure Mean [Right Arm] 92 Pulse Oximetry 97 99 99 Oxygen Delivery Method Room Air Room Air Room Air Sepsis Recent Fever Within 48 Hours Sepsis New/Unexplained Change in Mental Status Sepsis Action Taken by Nursing 09/19/24 13:00 09/19/24 14:01 09/19/24 14:15 Temperature Temperature Source Pulse Rate 67 67 62 Pulse Rate [Apical] Pulse Rate from SpO2 Sensor 68 68 62 Respiratory Rate 26 H 24 21 Respiratory Effort / Characteristics Respiratory Depth Respiratory Pattern Blood Pressure 123/75 116/79 154/80 H Blood Pressure [Right Arm] Blood Pressure Mean 91 86 104 Blood Pressure Mean [Right Arm] Pulse Oximetry 98 97 99 Oxygen Delivery Method Room Air Room Air Room Air Sepsis Recent Fever Within 48 Hours Sepsis New/Unexplained Change in Mental Status Sepsis Action Taken by Nursing Laboratory Data 09/19/24 11:37 09/19/24 11:37 Lab Results 09/19/24 09/19/24 Range/Units 11:37 11:42 WBC 9.04 (4.8-10.8) K/ul RBC 4.29 L (4.70-6.10) M/uL Hgb 13.4 L (14.0-18.0) g/dl POC Hgb 14.3 (14.0-18.0) g/dl Hct 39.3 L (42.0-52.0) % POC Hct 42 (42-52) % MCV 91.6 (80.0-100.0) fL MCH 31.2 (25.0-34.0) pg MCHC 34.1 (32.0-36.0) g/dL RDW Std Deviation 42.5 (36.4-46.3) fL RDW Coeff of Luis Enrique 12.6 (11.5-14.5) % Plt Count 162 (130-400) K/uL MPV 9.6 (9.4-12.4) fL Immature Gran % (Auto) 0.3 % Neut % (Auto) 61.1 % Lymph % (Auto) 26.0 % Ashe % (Auto) 10.5 % Eos % (Auto) 1.7 % Baso % (Auto) 0.4 % Neut # (Auto) 5.52 (1.40-6.50) K/uL Lymph # (Auto) 2.35 (1.20-3.40) K/uL Ashe # (Auto) 0.95 H (0.11-0.59) K/uL Eos # (Auto) 0.15 (0.00-0.50) K/uL Baso # (Auto) 0.04 (0.00-0.20) K/uL Immature Gran # (Auto) 0.03 (0.01-0.20) K/uL ESR 26 H (0-20) mm/hr POC Sodium 140 (135-144) mmol/L Sodium 139 (136-145) mmol/L POC Potassium 4.0 (3.3-5.0) mmol/L Potassium 4.1 (3.5-5.1) mmol/L POC Chloride 103 (101-112) mmol/L Chloride 105 (98-107) mmol/L Carbon Dioxide 26 (21-32) mmol/L POC Total CO2 24 (24-31) mmol/L Anion Gap 8 (3-11) POC Anion Gap 18.0 (16-25) mmol/L POC BUN 14 (7-18) mg/dl BUN 15 (6-23) mg/dl Creatinine 0.87 (0.6-1.4) mg/dl POC Creatinine 0.9 (0.6-1.3) mg/dl Est Cr Clr Drug Dosing 100.6 ml/min eGFR 101.27 BUN/Creatinine Ratio 17.2 (10-20) Glucose 117 H (70-99(Fasting)) mg/dl POC Glucose (other) 121 H (70-99) mg/dl Calcium 9.8 (8.6-10.3) mg/dl POC Ioniz Calcium Celso 1.21 (1.12-1.32) mmol/l Total Bilirubin 1.5 H (0.2-1.0) mg/dl AST 26 (13-39) U/L ALT 23 (7-52) U/L Alkaline Phosphatase 84 (34-104) U/L Troponin I High Sens 5.5 (0-20) pg/ml C-Reactive Protein 1.96 H (0-0.5) mg/dl Total Protein 7.6 (6.0-8.3) gm/dl Albumin 4.4 (3.4-5.0) gm/dl Globulin 3.2 (2.5-4.0) gm/dl Albumin/Globulin Ratio 1.4 (0.9-2) Lipase 17 (11-82) U/L Administered Medications Discontinued Medications Aspirin (Aspirin Chew 324 Mg) Confirm Administered Dose 324 mg .ROUTE .STK-MED ONE Stop: 09/19/24 11:44 Last Admin: 09/19/24 11:47 Dose: Not Given Documented By: Aspirin (Aspirin Chew 324 Mg) 324 mg PO NOW STA Stop: 09/19/24 11:43 Last Admin: 09/19/24 11:46 Dose: 324 mg Documented By: Nitroglycerin (Nitroglycerin Sl 0.4 Mg/Tab Tab) Confirm Administered Dose 0.4 mg .ROUTE .STK-MED ONE Stop: 09/19/24 11:45 Last Admin: 09/19/24 11:48 Dose: 0.4 mg Documented By: Imaging Data Radiologist's Impression: Chest X-Ray 09/19/24 11:37 XR chest 1V portable CLINICAL HISTORY: Chest pain, nonspecific COMPARISON STUDY: 04/25/2024 FINDINGS: Heart size and pulmonary vasculature are normal. No consolidation or pleural effusion. No pneumothorax. IMPRESSION: No acute findings. ACT 112: Negative or not required by law. Electronically signed by: Fredy Bach M.D. 09/19/2024 12:10 PM Tibia/Fibula X-Ray 09/19/24 13:08 XR tibia fibula RT 2V CLINICAL HISTORY: Interval progression of right rivas bone chip COMPARISON: None FINDINGS: There is focal soft tissue swelling anterior to the distal shaft of the tibia on the lateral view. No fracture or dislocation seen. No radiopaque foreign body. No evidence of osteomyelitis. IMPRESSION: No acute osseous finding seen. ACT 112: Negative or not required by law. Electronically signed by: Fredy Bach M.D. 09/19/2024 1:42 PM Discharge Plan Visit Data Chief Complaint: Chest Pain Stated Complaint: CHEST PAIN/HEART ED Provider: Jarett Lambert Discharge Problem: Chest pain, Abnormal ECG, Elevated glucose Condition: Fair Forms Stand Alone Forms: [employer] Prescriptions Prescriptions: No Action atorvastatin 40 mg tablet 40 mg PO QAM Qty: 30 3RF metoprolol tartrate 25 mg tablet 25 mg PO BID Qty: 60 3RF clopidogrel 75 mg tablet 75 mg PO DAILY Qty: 90 3RF (DME) Knee Scooter Misc See Rx Instructions .MEDSUPPLY Qty: 1 0RF Rx Instructions: As directed multivitamin Tablet 0 tab PO QAM Patient Comments: 09/19- otc unable to verify. Original: 1 tab po qam cetirizine [Zyrtec] 10 mg tablet 0 mg PO DAILY PRN (Reason: allergies) Patient Comments: 09/19- otc unable to verify. Original: 10 mg po daily prn. nitroglycerin 0.4 mg tablet, sublingual 0.4 mg sublingual Q5M PRN (Reason: chest pain) Qty: 25 0RF oxycodone 5 mg tablet 0 mg PO Q8H PRN (Reason: pain) Patient Comments: 09/19- no fill history unable to verify. Original:5mg po q8h prn aspirin 81 mg tablet,delayed release (DR/EC) 0 mg PO QAM Patient Comments: 09/19- OTC unable to verify. Original: 81mg po qam. Also listed on allergy/adverse list Referrals Referrals: Ned Carcamo DO [Primary Care Provider] - Discharge Problem: Chest pain Qualifiers: Chest pain type: unspecified Qualified Code(s): R07.9 - Chest pain, unspecified
--- NOTE | 2024-09-19 12:11 | XRay Report ---
XR chest 1V portable CLINICAL HISTORY: Chest pain, nonspecific COMPARISON STUDY: 04/25/2024 FINDINGS: Heart size and pulmonary vasculature are normal. No consolidation or pleural effusion. No p neumothorax. IMPRESSION: No acute findings. ACT 112: Negative or not required by law. Electronically signed by: Fredy Bach M.D. 09/19/2024 12:10 PM
[2024-09-19 12:25] LABS: Alanine Aminotransferase 23.0 U/L (7-52); Albumin Globulin Ratio 1.4 (0.9-2); Alkaline Phosphatase 84.0 U/L (34-104); Anion Gap 8.0 (3-11); Bilirubin,Total 1.5 mg/dl (0.2-1.0); Blood Urea Nitrogen 15.0 mg/dl (6-23); Calcium 9.8 mg/dl (8.6-10.3); Carbon Dioxide 26.0 mmol/L (21-32); Chloride 105.0 mmol/L (98-107); Creatinine Clr Calc Pharmacy 100.6 ml/min; Globulin 3.2 gm/dl (2.5-4.0); Glucose 117.0 mg/dl (70-99(Fasting)); Lipase 17.0 U/L (11-82); Potassium 4.1 mmol/L (3.5-5.1); Sodium 139.0 mmol/L (136-145); Total Protein 7.6 gm/dl (6.0-8.3)
--- NOTE | 2024-09-19 12:32 | History & Physical Report ---
Date of Service September 19, 2024 Assessment & Plan (1) Pericarditis: (2) History of myocardial infarction: (3) CAD (coronary artery disease): (4) Platelet storage pool disease: Plan This patient is a 54-year-old male with recent history of STEMI (04/25/2024) who presented to the Emergency Department on 09/19 for chest pain. Patient reports pain is pleuritic in nature and worse with certain movements. No reported fevers at home. #Acute pericarditis | chest pain ECG on arrival with diffuse ST elevations Stat cardiology consult appreciated given patient's recent h/o STEMI in April Given atypical chest pain (but with movements, worse leaning forward, p leuritic, etc.) higher suspicion for pericarditis No cardiac catheterization at this time Will hold off on IV heparin; given hours of chest pain with normal troponin x 2, lower suspicion for ACS Patient also reports he was physically exerting himself on Sunday 09/17 (moving heavy stones) Leading DDx on arrival includes pericarditis vs. MSK strain Echocardiogram reveals LVEF at 55 to 60%; no pericardial effusion seen Troponin WNL x 2; 1 additional troponin has been ordered to trend overnight CRP and ESR are both mildly elevated on arrival; continue to trend Renal function okay on arrival Initiate colchicine 0.6 mg p.o. BID Increase aspirin from 81 mg daily to 324 mg daily Initiate Protonix 40 mg p.o. daily for GI PPx Continuous telemetry monitoring #H/o NSTEMI | CAD Recent hospitalization 04/25 - 04/27 for STEMI Cardiac cath with Dr. Scott on 04/25 Severe multivessel coronary artery disease Successful PCI with MADY to proximal LAD Of note, patient has platelet storage pool syndrome; increased risk of bleeding RCA with 70 to 80% stenosis Thus far, patient has been tolerating DAPT Continue DAPT with aspirin and Plavix daily with close monitoring of platelets Continue atorvastatin Continue metoprolol #Platelet storage pool syndrome Increased risk of bleeding Hgb 13.4 on arrival; platelet count okay at 162 on arrival Recommend platelet transfusion if bleeding occurs Disposition: Admit to [facility] telemetry VTE PPx: DAPT + SCDs; hold chemical DVT PPx given platelet storage pool syndrome History of Present Illness Chief Complaint: Chest pain Primary Care Provider: Ned Carcamo DO Mr. Bautista is a 54-year-old male with PMH of NSTEMI, HTN, anxiety, and vertigo. He presented to the emergency department on 09/19 for left-sided chest pain that started the day prior. Patient reports that the pain woke him from sleep yesterday. Initially he felt that it was in both his pectoral muscles bilaterally, like a "sore muscle", and he was concerned he may have strained his chest. Patient was exerting himself: Moving heavy stones on the evening of Sunday 09/17; he then began developing chest pain on the morning of Monday 09/18. However, the pain lasted a couple hours that morning, and he reports it went away once he was up moving around. It then returned that night. Worse when leaning forward. Patient took Tylenol last night, and he is unsure if it helped. He also reports it is worse when he "takes deep breaths". Patient took a nitro last night around 0300, and this did not change his pain. He then took a second nitro tablet around 0800 today with slight improvement. He rates pain 5/10 at present; not chest pain-free. No sick contacts. No PMH of atrial fibrillation or DVT/PE. Significant family history for MIs (father, grand father). Also has a family history of blood clots (mother). Patient with recent history of NSTEMI on April 25, 2024 requiring catheterization. Patient took all his regular morning medicines today, including his aspirin and Plavix. Only recent change in medication was that he was switched from Brilinta to Plavix 1 month ago. Patient does report that he tore his left Achilles around 6 or 7 weeks ago playing softball. He did not like to have surgery on this. Patient denies smoking, tobacco use, recent alcohol use. No history of reflux or GERD, but he does report he has been "burping" the past 2 days. No recent change in diet, but did have pizza with Suraci sauce on it this week. Patient's vitals are stable at time of admission; SpO2 99% on RA, nontachycardic. ED course: Aspirin 324 mg p.o. Nitroglycerin 0.4 mg p.o. ROS: Patient endorses headache, chest pain, and pleuritic CP. Patient denies fever, chills, night-sweats, chest palpitations, SOB at rest with shallow breaths, cough, abdominal pain, N/V/D, changes in urinary/bowel habits, or numbness/tingling/pain in the arms or legs. Allergies Allergy/AdvReac Type Severity Reaction Status Date / Time aspirin Allergy Intermediate "STORAGE Unverified 07/16/24 14:13 POOL SYNDROME" Home Medications Medication Instructions Recorded Confirmed Type multivitamin 0 tab PO QAM 10/30/22 09/19/24 History nitroglycerin 0.4 mg sublingual 0.4 mg sublingual Q5M PRN chest 04/27/24 5 Rx tablet pain #25 tabs cetirizine 10 mg tablet (Zyrtec) 0 mg PO DAILY PRN allergies 05/03/24 09/19/24 History atorvastatin 40 mg tablet 40 mg PO QAM #30 tabs 05/21/24 09/19/24 Rx metoprolol tartrate 25 mg tablet 25 mg PO BID #60 tabs 05/21/24 09/19/24 Rx clopidogrel 75 mg tablet 75 mg PO DAILY #90 tabs 07/09/24 09/19/24 Rx Knee Scooter #1 ea 08/06/24 08/06/24 Rx aspirin 81 mg tablet,delayed 0 mg PO QAM 09/19/24 09/19/24 History release oxycodone 5 mg tablet 0 mg PO Q8H PRN pain 09/19/24 09/19/24 History Past Med/Surg History Problem List (Updated 09/19/24 @ 15:53 by Rashad Agarwal PA-C) CAD (coronary artery disease) Platelet storage pool disease History of myocardial infarction Pericarditis Elevated glucose (Acute) Abnormal ECG (Acute) Chest pain (Acute) Daytime somnolence HTN (hypertension) Non-ST elevation [place] (NSTEMI) Protrusion of cervical intervertebral disc Generalized anxiety disorder Vertigo (Acute) Pre-diabetes Medical History History of myocardial infarction Platelet storage pool disease CAD (coronary artery disease) Hyperlipidemia Cervical radiculopathy Borderline Lyme serology Dehydration Elevated CPK Surgical History History of cardiac cath History of heart artery stent No history of previous surgery Family History Grandfather (Paternal) Myocardial infarction Prostate cancer Grandfather (Maternal) Myocardial infarction Father Prostate cancer Sister Diabetes Denies family history of Ovarian cancer Breast cancer Colorectal cancer Stroke Social History Smoking Status: Never smoker Second Hand Exposure: No; Do You Dip or Chew Tobacco: No; Tobacco Cessation Education Requested by Patient: No Hx Alcohol Use: No Hx Substance Use: No Preferred Language: American Communication Ability: Effective Visual Impairment: Limited Hearing Ability: Normal 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 Review of Systems Review of Systems: See HPI above Physical Exam Physical Exam: General: no acute distress; family bedside; non-toxic appearing; well-nourished; cooperative; SpO2 99% on RA HEENT: normocephalic, atraumatic; no scleral icterus; PERRLA; vision and hearing grossly intact Neck: supple; trachea midline Skin: warm, dry without signs of tenting; no cyanosis; no rashes, bruising, lesions, or erythema noted CV: chest wall is mildly TTP; pain worse when leaning forward; RRR; S1/S2 normal; no murmurs/rubs/gallops appreciated; pulses intact and symmetric at radial, DP, and PT Lungs: no acute respiratory distress; symmetrical chest wall expansion; clear breath sounds across all lung reed w/o adventitious sounds; no wheezing ABD: Soft, NTP; BS present; no rebound/guarding; no distention MSK: no tics or fasciculations; no edema noted in the LEs b/l, nonerythematous LEs: Left lower extremity is mildly swollen, NTP; large 1 cm spherical "bone chip" noted on the dorsal surface of the right lower extremity Neuro: A&Ox3; normal mood and affect; fluent speech; no focal deficits; patient reports sensation is intact and symmetric in the lower extremities bilaterally Results & Data Results & Data Vital Signs (Past 12 Hours) Vital Signs Temp Pulse Pulse Resp BP BP Pulse Ox 09/19/24 12:26 69 20 97 09/19/24 11:45 09/19/24 11:41 70 09/19/24 11:40 09/19/24 11:36 70 15 124/79 97 09/19/24 11:29 36.9 C 71 15 120/68 97 O2 Del Method 09/19/24 12:26 Room Air 09/19/24 11:45 Room Air 09/19/24 11:41 09/19/24 11:40 Room Air 09/19/24 11:36 Room Air 09/19/24 11:29 Room Air Laboratory Results Abnormal lab results 09/19/24 09/19/24 Range/Units 11:37 11:42 RBC 4.29 L (4.70-6.10) M/uL Hgb 13.4 L (14.0-18.0) g/dl Hct 39.3 L (42.0-52.0) % Davis # (Auto) 0.95 H (0.11-0.59) K/uL Glucose 117 H (70-99(Fasting)) mg/dl POC Glucose (other) 121 H (70-99) mg/dl Total Bilirubin 1.5 H (0.2-1.0) mg/dl Diagnostic Findings Chest X-Ray 09/19/24 11:37 XR chest 1V portable CLINICAL HISTORY: Chest pain, nonspecific COMPARISON STUDY: 04/25/2024 FINDINGS: Heart size and pulmonary vasculature are normal. No consolidation or pleural effusion. No pneumothorax. IMPRESSION: No acute findings. ACT 112: Negative or not required by law. Electronically signed by: Fredy Bach M.D. 09/19/2024 12:10 PM ECG Additional Comments: ECG on arrival revealed NSR at 72 bpm; QTc 416 However, did note ST elevations in the inferior and lateral leads Repeat ECG read as a acute STEMI in the inferior lateral leads (specifically looking at V4 through V6) Code Status & VTE Plan Code Status Full code VTE Prophylaxis Plan VTE Prophylaxis will be ordered: Yes Supervising Physician Co-Signing Physician Notes Attending Attestation & Admit Note: Pt seen/examined, chart reviewed, admit care plan d/w LEONILA Agarwal. I agree w/ the rojo components of his documentation. Pleasant 54yo male with history of CAD/NSTEMI in 04/2024 s/p LAD stent, residual disease in other epicardial vessels, platelet storage pool disease, HTN, and re cent left achilles tendon tear about 6 weeks ago who presents with fairly continuous pleuritic central chest pain beginning yesterday. Worse with sitting or laying down, improved with standing. NO DYSPNEA. No recent illness. Some burping but no heartburn. I saw the patient on the med-tele floor and he already has achieved some relief of pain with higher-dose aspirin and colchicine. PMH/PSH/allergies/meds/sochx/famhx - reviewed VSS, o2 sats wnl gen - looks well, NAD mouth - MMM neck - no JVD heart - RRR, s1 s2, no murmur, no rub chest - no reproducible chest wall tenderness to palpation lungs - CTA b/l except faint/slight dry rales bases abd - soft NT ND BS+; no HSM ext - trace edema left rivas, otherwise no edema b/l ankles; pulses b/l feet 2+; left calf appears modestly bigger than right calf labs reviewed - sed rate/crp mildly elevated troponin neg x 3 EKG - my reading - ST segment elevation inferior leads; ST segment elevation V6; J-point elevation the remaining anterior leads CXR wnl A/P: 1. chest pain - continuous for 24+ hours - unlikely ischemic; description of pain, EKG ST changes, elevated ESR/CRP - suggestive of pericarditis 2. recent left-sided achilles tendon tear -agree with higher-dose aspirin for symptomatic relief but would only use briefly -agree with colchicine for up to 3 months in duration -obtain LLE doppler - r/o DVT - in light of nonweight-bearing status for a month; if doppler is + then will need CTA chest to rule out PE -recheck EKG in am to see if ST changes are evolving -appreciate cardiology consultation -agree with PPI for GI prophylaxis Jose Manuel Hay MD PG Care Time/CCT Total # of Minutes Spent Total Time Spent with Patient: Total time spent is greater than 50% in coordination of care (as documented) at patient's floor/unit and/or counseling patient: Coding [place] [address] INT INP/OBS CARE MIN Patient Type Established Medical Decision Making High Complexity Diagnoses Pericarditis I31.9 History of myocardial infarction I25.2 CAD (coronary artery disease) I25.10 Platelet storage pool disease D69.1
--- NOTE | 2024-09-19 13:11 | XCELERA ---
[id number]
--- NOTE | 2024-09-19 13:44 | XRay Report ---
XR tibia fibula RT 2V CLINICAL HISTORY: Interval progression of right rivas bone chip COMPARISON: None FINDINGS: There is focal soft tissue swelling anterior to the distal shaft of the tibia on the later al view. No fracture or dislocation seen. No radiopaque foreign body. No evidence of osteomyelitis. IMPRESSION: No acute osseous finding seen. ACT 112: Negative or not required by law. Electronically signed by: Fredy Bach M.D. 09/19/2024 1:42 PM
--- NOTE | 2024-09-19 14:42 | Electrocardiogram Report ---
Test Reason : Blood Pressure : */* mmHG Vent. Rate : 72 BPM Atrial Rate : 72 BPM P-R Int : 158 ms QRS Dur : 90 ms QT Int : 380 ms P-R-T Axes : 64 62 28 degrees QTcB Int : 416 ms Normal sinus rhythm Early repolarization Normal ECG When compared with ECG of 25-Apr-2024 20:00, ST elevation now present in Inferior leads ST elevation now present in Lateral leads Confirmed by Silverio Chirinos ([id number]) on 09/19/2024 2:42:06 PM Referred By: Denny Scott Confirmed By: Silverio Chirinos
--- NOTE | 2024-09-19 14:47 | Electrocardiogram Report ---
Test Reason : Blood Pressure : */* mmHG Vent. Rate : 71 BPM Atrial Rate : 71 BPM P-R Int : 156 ms QRS Dur : 92 ms QT Int : 380 ms P-R-T Axes : 59 60 23 degrees QTcB Int : 412 ms Normal sinus rhythm ST elevation, consider early repolarization, pericarditis, or injury Abnormal ECG When compared with ECG of 19-Sep-2024 11:34, (unconfirmed) No significant change was found Confirmed by Silverio Chirinos ([id number]) on 09/19/2024 2:46:56 PM Referred By: Denny Scott Confirmed By: Silverio Chirinos
--- NOTE | 2024-09-19 14:57 | Cardiology Consultation ---
Date of Consultation September 19, 2024 Assessment & Plan (1) Chest pain: 2. History of multivessel CADprior PCI of LAD, known residual severe RCA/circumflex disease 3. Platelet storage pool deficiency Patient's symptoms, ECG most consistent with acute pericarditis. No clear precipitants but suspect likely viral. At this time low suspicion for recurrent ACS with atypical nature of pain, normal wall motion on echo and completely normal HS TropI despite chest pain for >1 day. No evidence of pericardial effusion on current echo. Prior to recent pain has not had any exertional chest pain or change in exercise tolerance. Agree with admission to telemetry for observation No plan for cardiac catheterization at this time Check inflammatory markers Continue to trend troponin Start anti-inflammatoriesstart colchicine 0.6 mg twice daily NSAIDs complicated by CAD/platelet disorder. Feel higher dose aspirin likely the safest, start 325 twice daily. If bleeding may need to transition to steroids. Continue home clopidogrel, metoprolol, atorvastatin If remains stable overnight potentially home tomorrow with outpatient cardiology follow-up with Dr. Scott. History of Present Illness History of Present Illness Mr. Bautista is a very pleasant 54-year-old man with a history of multivessel CAD post PCI to LAD for NSTEMI 04/2024 with known residual severe RCA/circumflex disease who presented today with new diffuse chest pain. Patient follows with Dr. Scott for his cardiac care. He also has a history of platelet storage pool syndrome. Has done well since his ID with no recurrent symptoms, active doing physical work around his home, playing softball. More recently over the last few days has noted new diffuse chest pain initially most notable with inspiration. Pain has gradually become almost constant now but still worse with inspiration and improved if he sits straight up or stands up. Pain very different than when he had with his ID. No associated shortness of breath. Denies preceding fever/chills or viral symptoms. Continues to take DAPT with aspirin, clopidogrel. On presentation to ED initial ECG showed diffuse concave up ST elevation without reciprocal changes most notable in inferolateral leads. Does have some HI depressions. There was some concern for possible acute ID and interventional cardiology was contacted. Initial HS TropI normal. Repeat echocardiogram showed normal LV function with no regional wall motion abnormalities or pericardial effusion. Allergies Allergy/AdvReac Type Severity Reaction Status Date / Time aspirin Allergy Intermediate "STORAGE Unverified 07/16/24 14:13 POOL SYNDROME" Home Medications Medication Instructions Recorded Confirmed Type multivitamin 0 tab PO QAM 10/30/22 09/19/24 History nitroglycerin 0.4 mg sublingual 0.4 mg sublingual Q5M PRN chest 04/27/24 09/19/24 Rx tablet pain #25 tabs cetirizine 10 mg tablet (Zyrtec) 0 mg PO DAILY PRN allergies 05/03/24 09/19/24 History atorvastatin 40 mg tablet 40 mg PO QAM #30 tabs 05/21/24 09/19/24 Rx metoprolol tartrate 25 mg tablet 25 mg PO BID #60 tabs 05/21/24 09/19/24 Rx clopidogrel 75 mg tablet 75 mg PO DAILY #90 tabs 07/09/24 09/19/24 Rx Knee Scooter #1 ea 08/06/24 08/06/24 Rx aspirin 81 mg tablet,delayed 0 mg PO QAM 09/19/24 09/19/24 History release oxycodone 5 mg tablet 0 mg PO Q8H PRN pain 09/19/24 09/19/24 History aspirin 81 mg chewable tablet 324 mg (4 x 81 mg) PO QAM 09/20/24 Rx (Children's Aspirin) Pericarditis #12 tabs colchicine 0.6 mg tablet (Colcrys) 0.6 mg PO BID Pericarditis #180 09/20/24 Rx tabs pantoprazole 40 mg tablet,delayed 40 mg PO QAM #30 tabs 09/20/24 Rx release Patient History Medical History History of myocardial infarction Platelet storage pool disease CAD (coronary artery disease) Hyperlipidemia Cervical radiculopathy Borderline Lyme serology Dehydration Elevated CPK Surgical History History of cardiac cath History of heart artery stent No history of previous surgery Family History Grandfather (Paternal) Myocardial infarction Prostate cancer Grandfather (Maternal) Myocardial infarction Father Prostate cancer Sister Diabetes Denies family history of Ovarian cancer Breast cancer Colorectal cancer Stroke Social History (Reviewed 08/06/24 @ 04:18 by GUILHERME Robles Smoking Status: Never smoker Second Hand Exposure: No; Do You Dip or Chew Tobacco: No; Tobacco Cessation Education Requested by Patient: No Hx Alcohol Use: No Hx Substance Use: No Preferred Language: Divehi Communication Ability: Effective Visual Impairment: Limited Hearing Ability: Normal Emergency Vehicle Dispatcher Required: No Beliefs That Will Affect Care: None marital status: Current Living Situation: Spouse and Family Current Living Situation Comment: Son. 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 Review of Systems Review of Systems: All systems reviewed & are unremarkable except as noted in HPI & below Physical Exam Physical Exam: General: Comfortable HEENT: Sclerae anicteric Lungs: Clear to auscultation bilaterally Cardiac: Regular rate and rhythm, no murmurs, no rubs Vascular: 2+ radial Abdomen: Soft, nontender Extremities: Well perfused, no peripheral edema Neuro: Nonfocal Psych: Alert orient x3, normal affect and mood Results & Data Vital Signs (Past 12 Hours) Vital Signs Temp Pulse Pulse Resp BP BP Pulse Ox 09/19/24 14:30 65 139/82 99 09/19/24 14:15 62 21 154/80 H 99 09/19/24 14:01 67 24 116/79 97 09/19/24 13:00 67 26 H 123/75 98 09/19/24 12:59 68 20 125/76 99 09/19/24 12:39 67 19 126/79 99 09/19/24 12:26 69 20 97 09/19/24 12:00 71 21 123/78 97 09/19/24 11:45 09/19/24 11:41 70 09/19/24 11:40 09/19/24 11:36 70 15 124/79 97 09/19/24 11:29 98.4 F 71 15 120/68 97 O2 Del Method 09/19/24 14:30 Room Air 09/19/24 14:15 Room Air 09/19/24 14:01 Room Air 09/19/24 13:00 Room Air 09/19/24 12:59 Room Air 09/19/24 12:39 Room Air 09/19/24 12:26 Room Air 09/19/24 12:00 09/19/24 11:45 Room Air 09/19/24 11:41 09/19/24 11:40 Room Air 09/19/24 11:36 Room Air 09/19/24 11:29 Room Air PG Care Time/CCT Total # of Minutes Spent Total Time Spent with Patient: Total time spent is greater than 50% in coordination of care (as documented) at patient's floor/unit and/or counseling patient: Coding Level of Care Code 20484 OFFICE CONSULT LVL M Diagnoses Chest pain R07.9 Chest pain type: unspecified (1) Chest pain Chest pain type: unspecified Qualified Code(s): R07.9 - Chest pain, unspecified
[2024-09-19] MEDS: ACETAMINOPHEN 325 MG TAB PO PRN (16:47)
[2024-09-19] MEDS: COLCHICINE 0.6 MG TAB PO ONE (16:47)
[2024-09-19] MEDS: METOPROLOL TARTRATE 25 MG TAB PO SCH (20:49)
--- NOTE | 2024-09-19 23:26 | Ultrasound Report ---
Exam(s): US VENOUS LEFT LOWER EXTREMITY EXAM: US Duplex Left Lower Extremity Veins CLINICAL HISTORY: Reason for exam: recent L achilles tear, non-weightbearing, edema. TECHNIQUE: Real-time duplex ultrasound scan of the left lower extremity veins integrating B-mode two-dimensional vascular structure, Doppler spectral analysis, color flow Doppler imaging and compression. COMPARISON: No relevant prior studies available. FINDINGS: Deep veins: . No DVT in the visualized common femoral, femoral, proximal deep femoral or popliteal veins. The veins demonstrate normal color flow, are normally compressible, with normal phasic flow and/or augmentation response. Superficial veins: . No thrombus in the visualized great saphenous vein. Soft tissues: No acute findings. No popliteal cyst. IMPRESSION: No ultrasound evidence of deep venous thrombosis in the left lower extremity. Electronically signed by: Kaleb Gayle MD 09/19/24 23:25 PM
[2024-09-19] MEDS: MoRPHine SULFATE 2 MG/ML CARP IV STA (23:55)
[2024-09-20 06:20] LABS: Hematocrit (blood only) 39.6 % (42.0-52.0); Hemoglobin 13.2 g/dl (14.0-18.0); Immature Granulocytes # (auto) 0.02 K/uL (0.01-0.20); Immature Granulocytes % (auto) 0.2 %; Mean Corpuscular Hemoglobin 31.0 pg (25.0-34.0); Mean Corpuscular Volume 93.0 fL (80.0-100.0); Platelet Count 144 K/uL (130-400); RDW Standard Deviation 43.3 fL (36.4-46.3); Red Blood Count 4.26 M/uL (4.70-6.10); White Blood Count 8.01 K/ul (4.8-10.8)
[2024-09-20 06:57] LABS: Anion Gap 6.0 (3-11); Blood Urea Nitrogen 13.0 mg/dl (6-23); Calcium 9.3 mg/dl (8.6-10.3); Carbon Dioxide 26.0 mmol/L (21-32); Chloride 105.0 mmol/L (98-107); Creatinine Clr Calc Pharmacy 108.1 ml/min; Glucose 106.0 mg/dl (70-99(Fasting)); Magnesium 2.0 mg/dl (1.7-2.4); Potassium 4.0 mmol/L (3.5-5.1); Sodium 137.0 mmol/L (136-145)
[2024-09-20] MEDS: ATORVASTATIN 40 MG TAB PO SCH (08:44)
[2024-09-20] MEDS: CLOPIDOGREL BISULFATE 75 MG TAB PO SCH (08:44)
[2024-09-20] MEDS: ASPIRIN 81 MG CHEW PO SCH (09:15)
[2024-09-20] MEDS: COLCHICINE 0.6 MG TAB PO SCH (09:15)
--- NOTE | 2024-09-20 10:19 | Discharge Summary ---
Discharge Summary Date of Service September 20, 2024 Principal Dx & Hospital Course #1 = Principal Diagnosis (1) Pericarditis: (2) History of myocardial infarction: (3) CAD (coronary artery disease): (4) Platelet storage pool disease: Plan This patient is a 54-year-old male with recent history of STEMI (04/25/2024) who presented to the Emergency Department on 09/19 for chest pain. Patient reports pain is pleuritic in nature and worse with certain movements. No reported fevers at home. Day of discharge 09/20: VSS Mr. Bautista is in good spirits this morning. He is happy to report that he is currently chest pain-free; 0-10 chest pain at rest. He does endorse mild discomfort when taking deep breaths, but otherwise feels back to normal. He did have significant chest pain last night; up to 8 out of 10, but then received both morphine and colchicine last night, which helped. Patient believes his pain is usually worse at night, but is unsure why. However, he did wake up briefly at 3 AM, and was having no chest pain at that time. Overall, patient does feel better today. He he is hopeful to leave the hospital today if it is possible. Eating and drinking well. No setbacks or fevers overnight. No shortness of breath or chest palpitations. ROS: Patient endorses mild headache, and mild pleuritic CP. Patient denies fever, chills, night sweats, dizziness/lightheadedness with ambulation, changes in vision, chest pain, chest palpitations, SOB, ARNOLD, cough, hemoptysis, abdominal pain, N/V/C, changes in urinary bowel habits, or numbness or tingling in arms or legs. #Acute pericarditis | chest pain ECG on arrival with diffuse ST elevations Stat cardiology consult appreciated given patient's recent h/o STEMI in April Given atypical chest pain (but with movements, worse leaning forward, pleuritic, etc.) higher suspicion for pericarditis No cardiac catheterization at this time Will hold off on IV heparin; given hours of chest pain with normal troponin x 3, lower suspicion for ACS Echocardiogram reveals LVEF at 55 to 60%; no pericardial effusion seen CRP and ESR are both mildly elevated on arrival; continue to trend Renal function okay on arrival Patient is chest pain-free on 09/20 Repeat EKG on the morning of 09/20 revealed NSR at 63 bpm; QTc 403; early repolarization Will plan to send him home on colchicine 0.6 mg p.o. BID Continue aspirin from 324 mg daily x 3 days, then transition back to 81 mg daily New prescription for Protonix 40 mg p.o. daily for GI PPx Recommend cardiology follow-up in the next 2 to 3 weeks (or soon as possible) #H/o NSTEMI | CAD Noted; recent hospitalization 04/25 - 04/27 for STEMI Cardiac cath with Dr. Scott on 04/25 Severe multivessel coronary artery disease Successful PCI with MADY to proximal LAD Of note, patient has platelet storage pool syndrome; increased risk of bleeding RCA with 70 to 80% stenosis Thus far, patient has been tolerating DAPT Continue DAPT with aspirin and Plavix daily with close monitoring of platelets Continue atorvastatin Continue metoprolol #Platelet storage pool syndrome Increased risk of bleeding Hgb 13.4 -> 13.2 over the course of hospitalization; stable Platelet count WNL Disposition: Discharge home with close PCP follow-up Notes For Next Care Provider Patient hospitalized 09/19 - 09/20 for acute pericarditis. He still has an elevated CRP of 10.39 at time of discharge. We are discharging him on colchicine 0.6 mg twice daily x 3 months. H/o platelet storage pool syndrome. We recommend he obtain repeat blood work (including a CRP, as well as a CBC to check his platelet counts) prior to his transitional care appointment. He is also being discharged on high-dose aspirin 324 mg p.o. daily x 3 days; with plan to transition back to aspirin 81 mg daily afterwards Cardiology follow-up in the next 2 to 3 weeks (or as soon as possible) Admission HPI Per Admitting Provider Mr. Bautista is a 54-year-old male with PMH of NSTEMI, HTN, anxiety, and vertigo. He presented to the emergency department on 09/19 for left-sided chest pain that started the day prior. Patient reports that the pain woke him from sleep yesterday. Initially he felt that it was in both his pectoral muscles bilaterally, like a "sore muscle", and he was concerned he may have strained his chest. Patient was exerting himself: Moving heavy stones on the evening of Sunday 09/17; he then began developing chest pain on the morning of Monday 09/18. However, the pain lasted a couple hours that morning, and he reports it went away once he was up moving around. It then returned that night. Worse when leaning forward. Patient took Tylenol last night, and he is unsure if it helped. He also reports it is worse when he "takes deep breaths". Patient took a nitro last night around 0300, and this did not change his pain. He then took a second nitro tablet around 0800 today with slight improvement. He rates pain 5/10 at present; not chest pain-free. No sick contacts. No PMH of atrial fibrillation or DVT/PE. Significant family history for MIs (father, grandfather). Also has a family history of blood clots (mother). Patient with recent history of NSTEMI on April 25, 2024 requiring catheterization. Patient took all his regular morning medicines today, including his aspirin and Plavix. Only recent change in medication was that he was switched from Brilinta to Plavix 1 month ago. Patient does report that he tore his left Achilles around 6 or 7 weeks ago playing softball. He did not like to have surgery on this. Patient denies smoking, tobacco use, recent alcohol use. No history of reflux or GERD, but he does report he has been "burping" the past 2 days. No recent change in diet, but did have pizza with Suraci sauce on it this week. Patient's vitals are stable at time of admission; SpO2 99% on RA, nontachycardic. ED course: Aspirin 324 mg p.o. Nitroglycerin 0.4 mg p.o. ROS: Patient endorses headache, chest pain, and pleuritic CP. Patient denies fever, chills, night-sweats, chest palpitations, SOB at rest with shallow breaths, cough, abdominal pain, N/V/D, changes in urinary/bowel habits, or numbness/tingling/pain in the arms or legs. Admission Exam Per Admitting Provider General: no acute distress; family bedside; non-toxic appearing; well-nourished; cooperative; SpO2 99% on RA HEENT: normocephalic, atraumatic; no scleral icterus; PERRLA; vision and hearing grossly intact Neck: supple; trachea midline Skin: warm, dry without signs of tenting; no cyanosis; no rashes, bruising, lesions, or erythema noted CV: chest wall is mildly TTP; pain worse when leaning forward; RRR; S1/S2 normal; no murmurs/rubs/gallops appreciated; pulses intact and symmetric at radial, DP, and PT Lungs: no acute respiratory distress; symmetrical chest wall expansion; clear breath sounds across all lung reed w/o adventitious sounds; no wheezing ABD: Soft, NTP; BS present; no rebound/guarding; no distention MSK: no tics or fasciculations; no edema noted in the LEs b/l, nonerythematous LEs: Left lower extremity is mildly swollen, NTP; large 1 cm spherical "bone chip" noted on the dorsal surface of the right lower extremity Neuro: A&Ox3; normal mood and affect; fluent speech; no focal deficits; patient reports sensation is intact and symmetric in the lower extremities bilaterally Discharge Exam General: Sitting upright in bed, in no acute distress; at bedside; non- toxic appearing; well-nourished; cooperative; SpO2 97% on RA HEENT: normocephalic, atraumatic; no scleral icterus; PERRLA; vision and hearing grossly intact Neck: supple; trachea midline Skin: warm, dry without signs of tenting; no cyanosis; no rashes, bruising, lesions, or erythema noted CV: chest wall is NTP; no rashes or bruising appreciated on the chest wall; RRR; S1/S2 normal; no murmurs/rubs/gallops appreciated; pulses intact and symmetric at radial, DP, and PT Lungs: no acute respiratory distress; symmetrical chest wall expansion; clear breath sounds across all lung reed w/o adventitious sounds; no wheezing ABD: Soft, NTP; BS present; no rebound/guarding; no distention MSK: no tics or fasciculations; no edema noted in the LEs b/l, nonerythematous LEs: Left lower extremity is mildly swollen, NTP, nonerythematous Neuro: A&Ox3; normal mood and affect; fluent speech; no focal deficits; patient reports sensation is intact and symmetric in the lower extremities bilaterally Discharge Plan Discharge Items Patient Disposition: Home - Self-Care Reason For Visit: PERICARDITIS Discharge Diagnosis: Acute pericarditis Condition on Discharge: Fair Activity: As commented below Activity Comment: Gradually increase activity as tolerated Non-emergency contact: Primary Care Provider and Scuba Diver Call non-emergency contact if: you have any medication questions, your symptoms worsen, your pain is not controlled, your pain is worsening, your pain is unusual for you and you have a fever Follow-up/Referrals: Ned Carcamo, DO [Primary Care Provider] - Diet: Heart Healthy Addtl Attending Provider Instructions: You were hospitalized at [facility] from 09/19 - 09/20 for acute onset of chest pain. On arrival, he reported that the chest pain was "worse with deep breaths", and somewhat positional. Your initial blood work was consistent with a condition called pericarditis. This is when the sac surrounding the heart becomes inflamed. An echocardiogram was performed at bedside which revealed no buildup of fluid around the heart (known as a pericardial effusion). Additionally, your troponin level (an enzyme that the heart releases during times of stress) remained normal throughout your hospital stay, which was reassuring. At time of discharge, all of your vital signs are stable. You also reports that you are currently chest pain-free, and that the colchicine helped significantly. While you still have an elevated inflammatory marker on your blood work (known as a "CRP"), this can be rechecked as an outpatient. Please plan to follow-up with your PCP in the next 1 to 2 weeks for a transitional care appointment. Please plan to have blood work drawn prior to this appointment, which include a "CBC" and a "CRP". Please plan to follow-up with your dry transfer worker in the next 2 to 3 weeks. New prescriptions / medication changes: - Colchicine 0.6 mg tablets twice daily x 3 months - Pantoprazole 40 mg tablets daily (to protect your stomach lining) - Aspirin 324mg daily Your aspirin is being increased from 81 mg daily to 324 mg daily (4 tablets) x 3 days After completion of this three day course of high dose aspirin, please transition back onto 81mg daily (1 tablet) If you develop any new or worsening symptoms, such as fever/chills, intractable chest pain, difficulty breathing, nausea, vomiting, or if you have any new concerns please return to the emergency department immediately. It was a pleasure taking care of you. Please reach out with any questions or concerns. Sincerely, The Hospital Medicine team at [facility] Pending Studies at Discharge: No Stand-Alone Forms: [facility] Medications and DC Order Prescriptions: New pantoprazole 40 mg Tablet,Delayed Release (Dr/Ec) 40 mg PO QAM Qty: 30 0RF Rx Instructions: Take 1 tablet by mouth daily colchicine [Colcrys] 0.6 mg Tablet 0.6 mg PO BID Qty: 180 0RF Rx Instructions: Take 1 tablet by mouth twice daily x 3 months aspirin [Children's Aspirin] 81 mg Tablet,Chewable 324 mg PO QAM Qty: 12 0RF Rx Instructions: Take 4 tablets by mouth every day x 3 days Continued atorvastatin 40 mg tablet 40 mg PO QAM Qty: 30 3RF metoprolol tartrate 25 mg tablet 25 mg PO BID Qty: 60 3RF clopidogrel 75 mg tablet 75 mg PO DAILY Qty: 90 3RF (DME) Knee Scooter Misc See Rx Instructions .MEDSUPPLY Qty: 1 0RF Rx Instructions: As directed multivitamin Tablet 0 tab PO QAM Patient Comments: 09/19- otc unable to verify. Original: 1 tab po qam cetirizine [Zyrtec] 10 mg tablet 0 mg PO DAILY PRN (Reason: allergies) Patient Comments: 09/19- otc unable to verify. Original: 10 mg po daily prn. nitroglycerin 0.4 mg tablet, sublingual 0.4 mg sublingual Q5M PRN (Reason: chest pain) Qty: 25 0RF oxycodone 5 mg tablet 0 mg PO Q8H PRN (Reason: pain) Patient Comments: 09/19- no fill history unable to verify. Original:5mg po q8h prn aspirin 81 mg tablet,delayed release (DR/EC) 0 mg PO QAM Patient Comments: 09/19- OTC unable to verify. Original: 81mg po qam. Also listed on allergy/adverse list Discharge Orders: Discharge Order (Routine); Ordered 09/20/24 Ordered By: Rashad Edgar/Other Patient Handouts: Pericarditis Admission Data Admit Date/Time: 09/19/24 14:17 Attending Provider: Jose Manuel Hay Admit Provider: Jose Manuel Hay Primary Care Provider: Ned Carcamo Other Providers: Brady William; Jose Manuel Hay Other Interventions: Discharge Summary Assessment (RN) Last Done: 09/20/24 11:39 Hospital Stay Data Consultations 09/19/24 11:57 Consult Cardiology Stat 09/19/24 12:03 ED Decision to Admit Stat Diagnostic Imagining Performed 09/19/24 18:52 US venous doppler LE LT Urgent Discharge Instructions Given to Patient (Per Discharging Provider) You were hospitalized at [facility] from 09/19 - 09/20 for acute onset of chest pain. On arrival, he reported that the chest pain was "worse with deep breaths", and somewhat positional. Your initial blood work was consistent with a condition called pericarditis. This is when the sac surrounding the heart becomes inflamed. An echocardiogram was performed at bedside which revealed no buildup of fluid around the heart (known as a pericardial effusion). Additionally, your troponin level (an enzyme that the heart releases during times of stress) remained normal throughout your hospital stay, which was reassuring. At time of discharge, all of your vital signs are stable. You also reports that you are currently chest pain-free, and that the colchicine helped significantly. While you still have an elevated inflammatory marker on your blo od work (known as a "CRP"), this can be rechecked as an outpatient. Please plan to follow-up with your PCP in the next 1 to 2 weeks for a transitional care appointment. Please plan to have blood work drawn prior to this appointment, which include a "CBC" and a "CRP". Please plan to follow-up with your dry transfer worker in the next 2 to 3 weeks. New prescriptions / medication changes: - Colchicine 0.6 mg tablets twice daily x 3 months - Pantoprazole 40 mg tablets daily (to protect your stomach lining) - Aspirin 324mg daily Your aspirin is being increased from 81 mg daily to 324 mg daily (4 tablets) x 3 days After completion of this three day course of high dose aspirin, please transition back onto 81mg daily (1 tablet) If you develop any new or worsening symptoms, such as fever/chills, intractable chest pain, difficulty breathing, nausea, vomiting, or if you have any new concerns please return to the emergency department immediately. It was a pleasure taking care of you. Please reach out with any questions or concerns. Sincerely, The Hospital Medicine team at [facility] Total Time Total Time Spent Total Time Spent (In Minutes): 25 [place] [address] IN/OBS DISCH 30 MIN/LESS Patient Type Established History Comprehensive Exam Comprehensive Medical Decision Making Moderate Complexity Diagnoses Pericarditis I31.9 History of myocardial infarction I25.2 CAD (coronary artery disease) I25.10 Platelet storage pool disease D69.1
[2024-09-20 11:18] VITALS: BP 116/73; RESP 18; TEMP 99; O2SAT 95
[2024-09-20 11:41] VITALS: PULSE 68
--- NOTE | 2024-09-20 12:05 | Cardiology Progress Note ---
Date of Service September 20, 2024 Assessment & Plan (1) Chest pain: Plan: 2. Acute Pericarditis 3. History of multivessel CADprior PCI of LAD, known residual severe RCA/circumflex disease 4. Platelet storage pool deficiency Largely chest pain free this morning. Electrically stable. HsTrop normal x3. From a cardiac standpoint OK with discharge home today. -- Continue colchicine 0.6 mg twice daily, taper over months. NSAIDs complicated by CAD/platelet disorder. Recommend ASA 324 twice daily for 2 weeks. -- Repeat ESR/CRP in 2 weeks. If improved can taper over weeks. Follow-up with Dr. Scott in 2 weeks. Admission and Anticipated Discharge Date Admission Date: September 19, 2024 Subjective Feeling well. Had chest pain overnight requiring 1 dose of morphine. This morning feeling better. No significant residual pain. No other new concerns. Tele reveiwed -- no events. Review of Systems Review of Systems: All systems reviewed & are unremarkable except as noted in HPI & below Physical Exam Physical Exam: General: Comfortable HEENT: Sclerae anicteric Lungs: Clear to auscultation bilaterally Cardiac: Regular rate and rhythm, no murmurs or rubs. Vascular: 2+ radial Abdomen: Soft, nontender Extremities: Well perfused, no peripheral edema Neuro: Nonfocal Psych: Alert orient x3, normal affect and mood Results & Data Vital Signs (Past 12 Hours) Vital Signs Temp Pulse Pulse Pulse Resp BP Pulse Ox 09/20/24 11:39 99.0 F 68 92 H 18 116/73 95 09/20/24 11:17 99.0 F 92 H 18 116/73 95 09/20/24 07:48 98.1 F 73 20 115/75 97 09/20/24 05:50 60 09/20/24 03:13 97.9 F 65 20 154/92 H 99 O2 Del Method 09/20/24 11:39 09/20/24 11:17 Room Air 09/20/24 07:48 Room Air 09/20/24 05:50 09/20/24 03:13 Room Air PG Care Time/CCT Total # of Minutes Spent Total Time Spent with Patient: Total time spent is greater than 50% in coordination of care (as documented) at patient's floor/unit and/or counseling patient: Coding Level of Care Code 10435 SUB INP/OBS CARE 2/35MIN Diagnoses Chest pain R07.9 Chest pain type: unspecified (1) Chest pain Chest pain type: unspecified Qualified Code(s): R07.9 - Chest pain, unspecified
== END 2024-09-20 12:14 | disposition home or self-care (01) | DRG 316 ==
LOC: SUATTDRO → ED 11:25 → 2N 14:17
DX: Z95.5 Presence of coronary angioplasty implant and graft; Z88.6 Allergy status to analgesic agent; Z79.02 Long term (current) use of antithrombotics/antiplatelets; I25.2 Old myocardial infarction; D69.1 Qualitative platelet defects; F41.9 Anxiety disorder, unspecified; I30.1 Infective pericarditis; I25.10 Atherosclerotic heart disease of native coronary artery without angina pectoris; R73.02 Impaired glucose tolerance (oral); Z79.82 Long term (current) use of aspirin; R42 Dizziness and giddiness; I10 Essential (primary) hypertension